=== PATIENT | male | born 1985 | race Caucasian/White ===

== ENCOUNTER 2022-03-06 09:25 | Outpatient (CLI) | payer OTHER, SELFPAY ==
[2022-03-06 19:22] LABS: Alanine Aminotransferase 38 U/L (6-50); Albumin Level 4.9 g/dL (3.5-5.1); Alkaline Phosphatase 72 U/L (38-126); Anion Gap 13 mmol/L (8-16); Aspartate Amino Transferase 29 U/L (17-59); Bilirubin,Total 0.9 mg/dL (0.2-1.3); Blood Urea Nitrogen 15 mg/dL (9-20); Calcium 9.2 mg/dL (8.4-10.2); Carbon Dioxide 26 mmol/L (22-30); Chloride 101 mmol/L (98-107); Cholesterol 192 mg/dL (0-200); Estimated Glomerular Filt Rate > 60; Glucose 94 mg/dL (65-110); HDL Direct 42 mg/dL; Potassium 4.6 mmol/L (3.4-5.0); Sodium 140 mmol/L (137-145); Triglycerides 277 mg/dL (<150)
[2022-03-06 19:33] LABS: LDL Cholesterol Direct 44 mg/dL
[2022-03-06 19:37] LABS: Vitamin D 25 Hydroxy 30.9 ng/mL
[2022-03-06 20:02] LABS: Basophils Absolute Auto 0.1 K/mm3 (0.0-0.1); Basophils Percent Auto 0.9 % (0.2-1.2); Eosinophils Absolute Auto 0.2 K/mm3 (0-0.3); Eosinophils Percent Auto 3.3 % (0-4.4); Hematocrit 46.2 % (42.0-52.0); Hemoglobin 15.3 g/dL (14.0-18.0); Immature Granulocyte Absolute 0.02 K/mm3 (0.00-0.031); Immature Granulocyte Percent A 0.3 % (0-0.5); Lymphocytes Absolute Auto 1.56 K/mm3 (0.9-3.2); Lymphocytes Percent Auto 22.2 % (18.3-44.2); Mean Corpuscular HGB Conc 33.1 g/dl (32-36); Mean Corpuscular Volume 93.5 fl (80-100); Mean Platelet Volume 9.7 fl (7.4-10.4); Monocytes Absolute Auto 0.4 K/mm3 (0.1-0.6); Neutrophils Absolute Auto 4.7 K/mm3 (1.3-6.7); Neutrophils Percent Auto 67.3 % (45.5-73.1); Platelet Count Result 266 k/mm3 (150-375); Red Blood Count 4.94 M/mm3 (4.6-6.20); Red Cell Distribution Width 12.1 % (11.5-14.5)
== END 2022-03-06 09:26 | disposition home or self-care (01) ==
LOC: ANHGOSHLAB 09:30
PROVIDERS: PCP Family Medicine; Visit Provider Family Medicine
DX: F41.8 Other specified anxiety disorders (principal); R03.0 Elevated blood-pressure reading, without diagnosis of hypertension; Z13.220 Encounter for screening for lipoid disorders; E55.9 Vitamin D deficiency, unspecified
CPT/HCPCS: 36415; 80053; 80061; 82306; 84443; 85025

== ENCOUNTER 2022-04-26 08:31 | Outpatient (CLI) | payer OTHER, SELFPAY ==
--- NOTE | 2022-05-08 14:33 | WPDHOMESLEEP ---
Sleep Study - Home Unattended Date of Study: 04/26/22 Ordering Provider: Kavon Laguna MD Interpreting Provider: Barby Hawley, DO Home Sleep Study Type: Apnea Link Air Height: 1.78 m Weight: 81.647 kg Body Mass Index: 25.8 Neck Circumference (inches): 14.25 [place]: 10 Reason for Sleep Study Daytime hypersomnia, morning headaches Sleep History The patient is a 37-year-old male with anxiety and depression that had a sleep study ordered by his primary care for evaluation of sleep apnea. 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 He frequently awakens from sleep short of breath. He occasionally awakens at night with heartburn, belching or cough. He frequently snores loud enough that others complain. He frequently wakes up gasping for air throughout the night. He frequently has breathing problems at night observed by himself or others. He denies sweating excessively at night. He frequently falls asleep during the day but never falls asleep while driving. he rarely experiences loss of muscle tone when extremely emotional. He frequently has trouble at school or work due to sleepiness. He occasionally feels unable to move when waking up or falling asleep. He frequently experiences vivid dreamlike scenes upon awakening or falling asleep. He denies feeling afraid of going to sleep. He occasionally has nightmares and frequently remembers his dreams. He frequently has thoughts racing through his mind. He occasionally feels sad or depressed. He frequently has anxiety. He frequently has muscular tension. He frequently notices parts of his body jerk. He frequently kicks during the night. He frequently has crawling and aching feelings in his legs and frequently has leg pain during the night. He frequently grinds his teeth during sleep and constantly awakens with morning jaw pain. He is frequently bothered by pain during the day but rarely awakened by pain during the night. He frequently wakes up feeling stiff in the morning. He frequently wakes up with sore or achy muscles. He frequently wakes up with pain in the neck, spine or other joints. He goes to bed at 10:00 p.m. on weekdays and at midnight on the weekends. It takes him at least 1 hour to fall asleep. He currently lives with his . He does not consume any caffeinated beverages within 2 hours of bedtime. He does not engage in physical exercise before bedtime. He will read before falling asleep. He denies watching television before falling asleep. He will take naps in the afternoon or the evening but they are not refreshing. He drinks 3-6 caffeinated beverages per day. He denies tobacco, alcohol and recreational drug use. [facility] Past Medical History Medical History Depression with anxiety Environmental allergies Surgical History Surgical History No pertinent past surgical history Family History Family History Father Hypertension Grandparent Family history of lung cancer Social History Social History Smoking status: Former smoker Second hand tobacco smoke exposure: No Smoking end date: 03/23/21 Alcohol intake: never Substance use: never Substance use type: does not use Lack of Transportation: No Lack of Food: Never True Current Housing: I Have Housing Concerned About Future Housing: No Difficulty Paying Gas/Electric Bills: No Difficulty Paying for Meds: No Currently Unemployed: No Education: High School Diploma/GED Difficulty w/ Childcare or Family Care: No Gender identity (if verbalized by the patient): Male Medications Home Medications Medication Instructions Recorded Confirmed Type fluoxetine 40 mg capsule 40 mg PO DAILY #90 caps 03/06/22 03/06/22 Rx Sleep Procedure T
[2022-05-08 14:40] VITALS: BMI 25.8
== END 2022-04-27 13:33 | disposition home or self-care (01) ==
PROVIDERS: PCP Family Medicine; Visit Provider Family Medicine
DX: G47.10 Hypersomnia, unspecified (principal); G47.33 Obstructive sleep apnea (adult) (pediatric)
CPT/HCPCS: 95806

== ENCOUNTER 2022-09-15 10:29 | Outpatient (CLI) | payer OTHER, SELFPAY ==
[2022-09-15 19:17] LABS: Alanine Aminotransferase 32 U/L (6-50); Albumin Level 4.7 g/dL (3.5-5.1); Alkaline Phosphatase 62 U/L (38-126); Anion Gap 5 mmol/L (8-16); Aspartate Amino Transferase 28 U/L (17-59); Bilirubin,Total 0.9 mg/dL (0.2-1.3); Blood Urea Nitrogen 16 mg/dL (9-20); Calcium 8.9 mg/dL (8.4-10.2); Carbon Dioxide 33 mmol/L (22-30); Chloride 101 mmol/L (98-107); Estimated Glomerular Filt Rate > 60; Glucose 89 mg/dL (65-110); Potassium 4.8 mmol/L (3.4-5.0); Sodium 139 mmol/L (137-145)
[2022-09-15 19:25] LABS: Free T4 Free Thyroxine 0.91 ng/mL (0.78-2.19); Vitamin D 25 Hydroxy 35.6 ng/mL
[2022-09-15 19:43] LABS: Cortisol Random 4.83 ug/dL
[2022-09-15 20:19] LABS: Folic Acid 9.8 ng/mL (2.76->20)
[2022-09-20 13:59] LABS: Thyrotropin Receptor Antibody <1.00 IU/L (<=2.00)
[2022-09-21 11:25] LABS: Adrenocorticotropic Hormone 13 pg/mL (6-50)
[2022-09-21 12:21] LABS: Thyroid Peroxidase Antibodies <1 IU/mL (<9)
[2022-09-22 04:52] LABS: Prolactin 3.5 ng/mL (***)
[2022-09-22 13:01] LABS: Thyroid Stimulating Immunoglob <89 % baseline (<140)
[2022-09-28 19:12] LABS: DHEA-Sulfate 328 mcg/dL (106-464)
== END 2022-09-15 10:30 | disposition home or self-care (01) ==
LOC: ANHGOSHLAB 10:31
PROVIDERS: PCP Family Medicine; Visit Provider Internal Medicine
DX: R53.82 Chronic fatigue, unspecified (principal)
CPT/HCPCS: 36415; 80053; 82024; 82306; 82533; 82607; 82627; 82746; 83519; 84146; 84439; 84443; 84445; 86376

== ENCOUNTER 2022-10-20 08:09 | Outpatient (CLI) | payer OTHER, SELFPAY ==
[2022-10-20 10:11] LABS: Cortisol Baseline 8.06 ug/dL
== END 2022-10-20 08:10 | disposition home or self-care (01) ==
PROVIDERS: PCP Family Medicine; Visit Provider Internal Medicine
DX: R53.82 Chronic fatigue, unspecified (principal)
CPT/HCPCS: 36415; 82533; 96372; J0834

== ENCOUNTER 2023-03-12 09:20 | Outpatient (CLI) | payer OTHER, SELFPAY ==
[2023-03-12 19:20] LABS: Alanine Aminotransferase 32 U/L (6-50); Alkaline Phosphatase 64 U/L (38-126); Anion Gap 12 mmol/L (8-16); Aspartate Amino Transferase 33 U/L (17-59); Bilirubin,Total 2.2 mg/dL (0.2-1.3); Blood Urea Nitrogen 13 mg/dL (9-20); Calcium 9.7 mg/dL (8.4-10.2); Carbon Dioxide 29 mmol/L (22-30); Chloride 99 mmol/L (98-107); Cholesterol 142 mg/dL (0-200); Estimated Glomerular Filt Rate > 60; Glucose 94 mg/dL (65-110); HDL Direct 52 mg/dL; Potassium 4.4 mmol/L (3.4-5.0); Sodium 140 mmol/L (137-145); Triglycerides 80 mg/dL (<150)
[2023-03-12 19:31] LABS: LDL Cholesterol Direct 52 mg/dL
[2023-03-12 20:37] LABS: Basophils Absolute Auto 0.1 K/mm3 (0.0-0.1); Basophils Percent Auto 1.1 % (0.2-1.2); Eosinophils Absolute Auto 0.2 K/mm3 (0-0.3); Eosinophils Percent Auto 3.2 % (0-4.4); Hemoglobin 15.4 g/dL (14.0-18.0); Immature Granulocyte Absolute 0.03 K/mm3 (0.00-0.031); Immature Granulocyte Percent A 0.5 % (0-0.5); Lymphocytes Absolute Auto 1.24 K/mm3 (0.9-3.2); Mean Corpuscular HGB Conc 33.5 g/dl (32-36); Mean Corpuscular Hemoglobin 32.1 pg (26-34); Mean Corpuscular Volume 95.8 fl (80-100); Mean Platelet Volume 10.1 fl (7.4-10.4); Monocytes Absolute Auto 0.4 K/mm3 (0.1-0.6); Monocytes Percent Auto 6.6 % (2.6-8.5); Neutrophils Absolute Auto 4.6 K/mm3 (1.3-6.7); Neutrophils Percent Auto 69.6 % (45.5-73.1); Platelet Count Result 302 k/mm3 (150-375); Red Cell Distribution Width 11.9 % (11.5-14.5); White Blood Count 6.5 K/mm3 (4.5-10.0)
[2023-03-12 22:23] LABS: Vitamin D 25 Hydroxy 44.6 ng/mL
[2023-03-17 09:32] LABS: Testosterone Free 88.6 pg/mL (35.0-155.0); Testosterone Total 666 ng/dL (250-1100)
== END 2023-03-12 09:21 | disposition home or self-care (01) ==
PROVIDERS: PCP Family Medicine; Visit Provider Family Medicine
DX: Z00.00 Encounter for general adult medical examination without abnormal findings (principal); G47.33 Obstructive sleep apnea (adult) (pediatric); R53.82 Chronic fatigue, unspecified; E78.5 Hyperlipidemia, unspecified; E04.1 Nontoxic single thyroid nodule; G25.81 Restless legs syndrome; F41.8 Other specified anxiety disorders; E53.8 Deficiency of other specified B group vitamins; E55.9 Vitamin D deficiency, unspecified
CPT/HCPCS: 36415; 80053; 80061; 82306; 82607; 82728; 84402; 84403; 84443; 85025

== ENCOUNTER 2024-05-29 07:57 | Outpatient (CLI) | payer OTHER, SELFPAY ==
--- NOTE | ~2024-05-29 | MR_ITS ---
EXAMINATION: MR brain/brain stem wo con DATE: 05/29/2024 08:29 INDICATION: Other hypersomnia. Headache. TECHNIQUE: Magnetic resonance imaging (MRI) of the brain and brainstem was performed without intraven ous contrast. COMPARISON: None. 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 There is no acute ischemic infarct or intracranial hemorr catrachita. The ventricles are normal in size. The orbits are normal. There is mild mucosal thickening in t he paranasal sinuses. The mastoid air cells are normal. IMPRESSION: 1. 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 Reviewed, dictated and finalized at location A. RNMENT MINISTER IMPRESSION: 1. 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
== END 2024-05-29 07:58 | disposition home or self-care (01) ==
PROVIDERS: PCP Family Medicine; Visit Provider Family Medicine
DX: G47.19 Other hypersomnia (principal); E34.8 Other specified endocrine disorders
CPT/HCPCS: 70551

== ENCOUNTER 2024-06-26 21:01 | Emergency (ER) | payer OTHER, SELFPAY ==
--- OUTSIDE RECORDS SUMMARY | 2024-06-26 21:04 | XMS_ITS | Patient Health Summary ---
Author Organization [facility] Address [address] [place] [address] Care Team Providers Care Fire Manager Name Role Phone Unavailable Primary Care Provider Unavailabl e Note from [facility],non-owned Affiliates and Associated Physician Practices is amultiple site organization consisting of ambulatory clinics and hospital sitesin [place], [place], [place] and [place]. This disclosure is being madepursuant to the Care Everywhere program and may not contain all information available regarding this patient. Last updated 18.[facility] Allergies No known active allergies Medications * Be aware that medications may not be up to date on this document. Alwaysverify current medications with the patient. * HYDROcodone-acetaminophen (Binger) 5-325 MG tablet(Started 05/06/2024) Take 1 (one) tablet by mouth every 6 hours as needed for Pain * ondansetron, disintegrating, (Zofran ODT) 4 MG tablet(Started 05/06/2024) Take 1 (one) tablet by mouth every 6 hours as needed for Nausea/Vomiting Allow tablet to dissolve on the tongue Social History Tobacco Use Types Packs/Day Years Used Date Smoking Tobacco: Never Assessed Sex and Gender Information Value Date Recorded Sex Assigned at Not on file Gender Identity Not on file Sexual Orientation Not on file Last Filed Vital Signs Vital Sign Reading Time Taken Comments Blood Pressure 111/73 05/06/2024 10:22 PM STOCK MOVER Pulse 92 05/06/2024 8:01 PM STOCK MOVER Temperature 36.8 C (98.2 F) 05/06/2024 8:01 PM STOCK MOVER Respiratory Rate 22 05/06/2024 8:01 PM STOCK MOVER Oxygen Saturation 97% 05/06/2024 8:01 PM STOCK MOVER Inhaled Oxygen Concentration - - Weight - - Height - - Body Mass Index - - Procedures * CT ABDOMEN PELVIS W CONTRAST(Performed 05/06/2024) Performed for Abdominal pain, right lower quadrant * URINALYSIS REFLEX MICROSCOPIC REFLEX CULTURE(Performed 05/06/2024) * LIPASE BLOOD(Performed 05/06/2024) * COMPREHENSIVE METABOLIC PANEL(Performed 05/06/2024) * CBC W AUTO DIFFERENTIAL(Performed 05/06/2024) Results * CT ABDOMEN PELVIS W CONTRAST (05/06/2024 7:36 PM STOCK MOVER) Anatomical Region Laterality Modality Abdomen, Pelvis Computed Tomogra phy 05/06/2024 7:43 PM STOCK MOVER Impressions 05/06/2024 7:50 PM STOCK MOVER IMPRESSION: 1. Right obstructive uropathy due to a 5 mm calculus in the distal ampullary portion of the ureter. 2. Multiple additional nonobstructing right intrarenal stones > Interpreting Provider: Robert Gandhi MD on 05/06/2024 7:50 PM Narrative 05/06/2024 7:50 PM ST[facility] MOVER PROCEDURE: CT ABDOMEN PELVIS W CONTRAST DATE/TIME OF EXAM: 05/06/2024 7:37 PM CLINICAL INFORMATION: None relevant/not provided if blank. Indication: R10.31: Right lower quadrant pain Additional History: COMPARISON: None. TECHNIQUE: CT of the abdomen and pelvis was performed following intravenous contrast utilizing standard protocol. CT dose reduction technique was used, including Automated Exposure Control. CONTRAST: IOPAMIDOL 76 % IV SOLN:100 mL FINDINGS: The lung bases are clear and free of effusion. The heart size is normal. Overall liver size is normal. In hepatic segment 3 there is a 0.9 cm hypervascular nodule. At the patient's age as is most likely incidental such as flash filling of a hemangioma. No follow-up is recommended. The portal and hepatic veins are patent. The gallbladder is unremarkable and there is no dilatation of the biliary tree or common duct. The pancreas and pancreatic duct are normal. The spleen is normal. Adrenal glands are normal. Mild right hydronephrosis and hydroureter is due to a 5 x 4 mm calculus in the very distal ampullary portion of the ureter. There are multiple additional nonobstructing right intrarenal stones including a 9 x 7 mm calculus free within the renal pelvis. At least 5 additional stones within the calyces. The left kidney is unremarkable and free of stones. The abdominal aorta and IVC are unremarkable. There is no retroperitoneal or iliac chain adenopathy. The distal esophagus is decompressed. The stomach and duodenum are normal. Small bowel is normal. The terminal ileum is normal. There is a possible atrophic appendix without any inflammation. Scattered stool in the colon without obstructive or inflammatory changes. No free fluid, free air or abscess. The urinary bladder is completely empty. No significant bony findings. Incidental 1.5 cm noninflamed fatty umbilical hernia. Procedure Note Robert Gandhi MD - 05/06/2024 PROCEDURE: CT ABDOMEN PELVIS W CONTRAST DATE/TIME OF EXAM: 05/06/2024 7:37 PM CLINICAL INFORMATION: None relevant/not provided if blank. Indication: R10.31: Right lower quadrant pain Additional History: COMPARISON: None. TECHNIQUE: CT of the abdomen and pelvis was performed following intravenouscontrast utilizing standard protocol. CT dose reduction technique was used, including Automated ExposureControl. CONTRAST: IOPAMIDOL 76 % IV SOLN:100 mL FINDINGS: The lung bases are clear and free of effusion. The heart size isnormal. Overall liver size is normal. In hepatic segment 3 there is a 0.9 cm hypervascular nodule. At the patient's age as is most likely incidental such as flash filling of a hemangioma. No follow-up is recommended.The portal and hepatic veins are patent. The gallbladder is unremarkableand there is no dilatation of the biliary tree or common duct. The pancreas and pancreatic duct are normal. The spleen is normal. Adrenal glandsare normal. Mild right hydronephrosis and hydroureter is due to a 5 x 4 mm calculusin the very distal ampullary portion of the ureter. There are multiple additional nonobstructing right intrarenal stones including a 9 x 7 mm calculus free within the renal pelvis. At least 5 additional stoneswithin the calyces. The left kidney is unremarkable and free of stones. The abdominal aorta and IVC are unremarkable. There is noretroperitoneal or iliac chain adenopathy. The distal esophagus is decompressed. The stomach and duodenum arenormal. Small bowel is normal. The terminal ileum is normal. There is apossible atrophic appendix without any inflammation. Scattered stool in thecolon without obstructive or inflammatory changes. No free fluid, free air or abscess. The urinary bladder is completely empty. No significant bony findings. Incidental 1.5 cm noninflamed fatty umbilical hernia. IMPRESSION: 1. Right obstructive uropathy due to a 5 mm calculus in the distal ampullary portion of the ureter. 2. Multiple additional nonobstructing right intrarenal stones > Interpreting Provider: Robert Gandhi MD on 05/06/2024 7:[address] ORDERABLES * (ABNORMAL) URINALYSIS REFLEX MICROSCOPIC REFLEX CULTURE (05/06/2024 6:31 PM STOCK MOVER) Color UA Yellow Yellow, Straw 05/06/2024 6:42 PM STOCK M[facility] Clarity UA Clear Clear 05/06/2024 6:42 PM STOCK M[facility] Glucose UA Normal Normal 05/06/2024 6:42 PM STOCK M[facility] Bilirubin UA Negative Negative 05/06/2024 6:42 PM STOCK MOVER [facility] Ketone UA Trace(A) Negative 05/06/2024 6:42 PM STOCK MOVER [facility] Specific [place] UA 1.028 1.005 - 1.030 05/06/2024 6:42 PM STOCK MOVER [facility] Blood UA Negative Negative 05/06/2024 6:[address] [facility] pH UA 5.0 5.0 - 9.0 pH 05/06/2024 6:42 PM STOCK MOVER [facility] Protein UA Trace(A) Negative 05/06/2024 6:42 PM ST[facility] M[facility] Urobilinogen UA Normal Normal mg/dL 025 6:[address] [facility] Nitrite UA Negative Negative 05/06/2024 6:42 PM ST[facility] M[facility] Leukocyte UA Negative Negative 05/06/2024 6:[address] [facility] Urine URINE SPECIMEN OBTAINED BY CLEAN CATCH PROCEDURE / Unknown Collection / Unknown 05/06/2024 6:31 PM STOCK MOVER 05/06/2024 6:36 PM ST[facility] MOVER Narrative [facility] - 05/06/2024 6:42 PM ST[facility] - URINALYSIS ORD ERABLES [facility] [address] [place] [address] * (ABNORMAL) CBC W AUTO DIFFERENTIAL (05/06/2024 6:31 PM [facility]) [facility] WBC 13.2(H) 4.0 - 10.7 x10E9/L 05/06/2024 6:[address] [facility] RBC Count 4.64 4.30 - 5.80 x10E12/L 05/06/2024 6:[address] [facility] Hemoglobin 14.5 13.3 - 17.5 g/dL 05/06/2024 6:[address] [facility] Hematocrit 42.6 38.7 - 51.1 % 05/06/2024 6:[address] [facility] MCV 91.8 80.0 - 98.0 fL 05/06/2024 6:[address] [facility] MCH 31.3 26.7 - 33.6 pg 05/06/2024 6:[address] [facility] MCHC 34.0 31.7 - 36.3 g/dL 05/06/2024 6:[address] [facility] RDW-CV 11.9 11.3 - 14.8 % 05/06/2024 6:[address] [facility] Platelet Count 263 150 - 420 x10E9/L 05/06/2024 6:[address] [facility] MPV 9.0 7.8 - 11.4 fL 05/06/2024 6:[address] [facility] Neutrophil % 75.0(H) 41.0 - 74.0 % 05/06/2024 6:[address] [facility] Lymphocyte % 17.5 17.0 - 47.0 % 05/06/2024 6:[address] [facility] Monocyte % 4.9 3.0 - 11.0 % 05/06/2024 6:[address] [facility] Eosinophil % 1.5 0.0 - 7.0 % 05/06/2024 6:[address] [facility] Basophil % 0.6 0.0 - 1.6 % 05/06/2024 6:[address] [facility] Immature Granulocytes % 0.5 0.0 - 1.0 % 05/06/2024 6:[address] [facility] Neutrophil Absolute 9.89(H) 1.60 - 7.50 x10E9/L 05/06/2024 6:[address] [facility] Lymphocyte Absolute 2.30 1.00 - 4.40 x10E9/L 05/06/2024 6:[address] [facility] Monocyte Absolute 0.65 0.15 - 1.00 x10E9/L 05/06/2024 6:[address] [facility] Eosinophil Absolute 0.20 0.00 - 0.60 x10E9/L 05/06/2024 6:[address] [facility] Basophil Absolute 0.08 0.00 - 0.13 x10E9/L 05/06/2024 6:[address] [facility] Blood BLOOD SPECIMEN / Unknown Venipuncture / Unknown 05/06/2024 6:31 PM STOCK [facility]OVER 05/06/2024 6:36 PM ST[facility] - HEMATOLOGY ORD ERABLES Performing Organization Address City/State/[facility] Co de Phone Number [facility] [address] [place] [address] * (ABNORMAL) COMPREHENSIVE METABOLIC PANEL (05/06/2024 6:31 PM STOCK MOVER) Glucose 113(H) 70 - 99 mg/dL 05/06/2024 6:[address] [facility] Sodium 137 136 - 145 mmol/L 05/06/2024 6:[address] [facility] Potassium 3.7 3.5 - 5.1 mmol/L 05/06/2024 6:[address] [facility] Chloride 103 98 - 107 mmol/L 05/06/2024 6:[address] [facility] CO2 26 22 - 29 mmol/L 05/06/2024 6:[address] [facility] Calcium 9.0 8.4 - 10.4 mg/dL 05/06/2024 6:[address] [facility] Anion Gap 8 6 - 16 mmol/L 05/06/2024 6:[address] [facility] BUN 15 5.3 - 18.7 mg/dL 05/06/2024 6:[address] [facility] Creatinine 1.01 0.72 - 1.25 mg/dL 05/06/2024 6:52 PM ST[facility] Alkaline Phosphatase 75 40 - 150 U/L 05/06/2024 6:52 PM ST[facility] M[facility] ALT 31 0 - 55 U/L 05/06/2024 6:52 PM ST[facility] AST 23 5 - 34 U/L 05/06/2024 6:[address] [facility] Protein Total 7.9 6.4 - 8.3 gm/dL 05/06/2024 6:52 PM ST[facility] Albumin 4.6 3.4 - 5.0 gm/dL 05/06/2024 6:52 PM ST[facility] Bilirubin Total 1.1 0.2 - 1.2 mg/dL 05/06/2024 6:[address] [facility] eGFR by CKD-EPI >90 >=90 mL/min/1.7 3 m2 05/06/2024 6:52 PM ST[facility] Blood BLOOD SPECIMEN / Unknown Venipuncture / Unknown 05/06/2024 6:31 PM STOCK MOVER 05/06/2024 6:36 PM ST[facility] - CHEMISTRY VALERIE SANCHEZ [facility] [address] [place] [address] * LIPASE BLOOD (05/06/2024 6:31 PM STOCK MOVER) Lipase 18 <60 U/L 05/06/2024 6:52 PM STOCK MOVER [facility] Blood BLOOD SPECIMEN / Unknown Venipuncture / Unknown 05/06/2024 6:31 PM STOCK MOVER 05/06/2024 6:36 PM STOCK MOVER [facility] - CHEMISTRY VALERIE SANCHEZ [facility] [address] [place] [address]
--- OUTSIDE RECORDS SUMMARY | 2024-06-26 21:04 | XMS_ITS | Referral Summary ---
Author Organization [facility] Address [address] [place] [address] Care Team Providers Care Case Picker Name Role Phone Unavailable Primary Care Provider Unavailabl e Source Comments [facility],non-owned Affiliates and Associated Physician Practices is amultiple site organization consisting of ambulatory clinics and hospital sitesin [place], [place], [place] and [place]. This disclosure is being madepursuant to the Care Everywhere program and may not contain all information available regarding this patient. Last updated 18.[facility] Encounters Date Type Department Care Team Description 05/06/2024 Travel 05/06/2024 6:23 PM [employer] CONSULTING ARCHITECT - 05/06/2024 10:25 PM [employer]D CONSULTING ARCHITECT Emergency ER at [address] [address] Kidney stone (Primary Dx); Abdominal pain, right lower quadrant Discharge Disposition: Home or Self Care from Last 3 Months Allergies No known active allergies Medications * Be aware that medications may not be up to date on this document. Alwaysverify current medications with the patient. Medication Sig Dispensed Refills Start Date End Date Status HYDROcodone-acetamin ophen ([place]) 5-325 MG tabletIndications:Ki dney stone Take 1 (one) tablet by mouth every 6 hours as needed for Pain 12 tablet 05/06/2024 Active ondansetron, disintegrating, (Zofran ODT) 4 MG tablet Take 1 (one) tablet by mouth every 6 hours as needed for Nausea/Vomiting Allow tablet to dissolve on the tongue 20 tablet 05/06/2024 Active Social History Tobacco Use Types Packs/Day Years Used Date Smoking Tobacco: Never Assessed Sex and Gender Information Value Date Recorded Sex Assigned at Not on file Gender Identity Not on file Sexual Orientation Not on file Last Filed Vital Signs Vital Sign Reading Time Taken Comments Blood Pressure 111/73 05/06/2024 10:22 PM [employer] CONSULTING ARCHITECT Pulse 92 05/06/2024 8:01 PM [employer]OUD CONSULTING ARCHITECT Temperature 36.8 C (98.2 F) 05/06/2024 8:01 PM [employer]OUD CONSULTING ARCHITECT Respiratory Rate 22 05/06/2024 8:01 PM [employer]D CONSULTING ARCHITECT Oxygen Saturation 97% 05/06/2024 8:01 PM [employer]D CONSULTING ARCHITECT Inhaled Oxygen Concentration - - Weight - - Height - - Body Mass Index - - Plan of Treatment Not on file Procedures Procedure Name Priority Date/Time Associated Diagnosis Comments CT ABDOMEN PELVIS W CONTRAST STAT 05/06/2024 7:36 PM [employer]OUD CONSULTING ARCHITECT Abdominal pain, right lower quadrant URINALYSIS REFLEX MICROSCOPIC REFLEX CULTURE STAT 05/06/2024 6:31 PM [employer]D CONSULTING ARCHITECT LIPASE BLOOD STAT 05/06/2024 6:31 PM [employer]OUD CONSULTING ARCHITECT COMPREHENSIVE METABOLIC PANEL STAT 05/06/2024 6:31 PM [employer]OUD CONSULTING ARCHITECT CBC W AUTO DIFFERENTIAL STAT 05/06/2024 6:31 PM [employer]OUD CONSULTING ARCHITECT from Last 3 Months Results * CT ABDOMEN PELVIS W CONTRAST (05/06/2024 7:36 PM [employer] CLOUD CONSULTING ARCHITECT) Anatomical Region Laterality Modality Abdomen, Pelvis Computed Tomogra phy 05/06/2024 7:43 PM [employer]OUD CONSULTING ARCHITECT Impressions 05/06/2024 7:50 PM [employer] CLOUD CONSULTING ARCHITECT IMPRESSION: 1. Right obstructive uropathy due to a 5 mm calculus in the distal ampullary portion of the ureter. 2. Multiple additional nonobstructing right intrarenal stones > Interpreting Provider: Robert Gandhi MD on 05/06/2024 7:50 PM Narrative 05/06/2024 7:50 PM [employer] CONSULTING ARCHITECT PROCEDURE: CT ABDOMEN PELVIS W CONTRAST DATE/TIME [...] REFLEX MICROSCOPIC REFLEX CULTURE (05/06/2024 6:31 PM [employer]OUD CONSULTING ARCHITECT) Color UA Yellow Yellow, Straw 05/06/2024 6:42 PM [employer]ST[employer] CLOUD CONSULTING ARCHITECT [facility] Clarity UA Clear Clear 05/06/2024 6:42 PM [employer]ST[employer] CLOUD CONSULTING ARCHITECT [facility] Glucose UA Normal Normal 05/06/2024 6:42 PM [employer] CLOUD CONSULTING ARCHITECT [facility] Bilirubin UA Negative Negative 05/06/2024 6:42 PM [employer] CLOUD CONSULTING ARCHITECT [facility] Ketone UA Trace(A) Negative 05/06/2024 6:42 PM [employer] CLOUD CONSULTING ARCHITECT [facility] Specific [place] UA 1.028 1.005 - 1.030 05/06/2024 6:42 PM [employer] CLOUD CONSULTING ARCHITECT [facility] Blood UA Negative Negative 05/06/2024 6:42 PM [employer] CLOUD CONSULTING ARCHITECT [facility] pH UA 5.0 5.0 - 9.0 pH 05/06/2024 6:42 PM [employer] CLOUD CONSULTING ARCHITECT [facility] Protein UA Trace(A) Negative 05/06/2024 6:42 PM [facility] Urobilinogen UA Normal Normal mg/dL 025 6:42 PM [facility] Nitrite UA Negative Negative 05/06/2024 6:42 PM [facility] Leukocyte UA Negative Negative 05/06/2024 6:42 PM [facility] Urine URINE SPECIMEN OBTAINED BY CLEAN CATCH PROCEDURE / Unknown Collection / Unknown 05/06/2024 6:31 PM [employer] CLOUD CONSULTING ARCHITECT 05/06/2024 6:36 PM [employer]ST[employer] CLOUD CONSULTING ARCHITECT [facility] - 05/06/2024 6:42 PM [employer]ST[employer] CLOUD CONSULTING ARCHITECT [facility] - URINALYSIS ORD ERABLES [facility] [address] [place], [place] [id number] * (ABNORMAL) CBC W AUTO DIFFERENTIAL (05/06/2024 6:31 PM [employer] CLOUD CONSULTING ARCHITECT) WBC 13.2(H) 4.0 - 10.7 x10E9/L 05/06/2024 6:41 PM [facility] RBC Count 4.64 4.30 - 5.80 x10E12/L 05/06/2024 6:41 PM [facility] Hemoglobin 14.5 13.3 - 17.5 g/dL 05/06/2024 6:41 PM [facility] Hematocrit 42.6 38.7 - 51.1 % 05/06/2024 6:41 PM [facility] MCV 91.8 80.0 - 98.0 fL 05/06/2024 6:41 PM [facility] MCH 31.3 26.7 - 33.6 pg 05/06/2024 6:41 PM [facility] MCHC 34.0 31.7 - 36.3 g/dL 05/06/2024 6:41 PM [facility] RDW-CV 11.9 11.3 - 14.8 % 05/06/2024 6:41 PM [facility] Platelet Count 263 150 - 420 x10E9/L 05/06/2024 6:41 PM [facility] MPV 9.0 7.8 - 11.4 fL 05/06/2024 6:41 PM [facility] Neutrophil % 75.0(H) 41.0 - 74.0 % 05/06/2024 6:41 PM [facility] Lymphocyte % 17.5 17.0 - 47.0 % 05/06/2024 6:41 PM [facility] Monocyte % 4.9 3.0 - 11.0 % 05/06/2024 6:41 PM [facility] Eosinophil % 1.5 0.0 - 7.0 % 05/06/2024 6:41 PM [facility] Basophil % 0.6 0.0 - 1.6 % 05/06/2024 6:41 PM [facility] Immature Granulocytes % 0.5 0.0 - 1.0 % 05/06/2024 6:41 PM [facility] Neutrophil Absolute 9.89(H) 1.60 - 7.50 x10E9/L 05/06/2024 6:41 PM [facility] Lymphocyte Absolute 2.30 1.00 - 4.40 x10E9/L 05/06/2024 6:41 PM [facility] Monocyte Absolute 0.65 0.15 - 1.00 x10E9/L 05/06/2024 6:41 PM [facility] Eosinophil Absolute 0.20 0.00 - 0.60 x10E9/L 05/06/2024 6:41 PM [facility] Basophil Absolute 0.08 0.00 - 0.13 x10E9/L 05/06/2024 6:41 PM [facility] Blood BLOOD SPECIMEN / Unknown Venipuncture / Unknown 05/06/2024 6:31 PM [employer]OUD CONSULTING ARCHITECT 05/06/2024 6:36 PM [facility] - HEMATOLOGY ORD ERABLES [facility] [address] [place] [address] * (ABNORMAL) COMPREHENSIVE METABOLIC PANEL (05/06/2024 6:31 PM [employer]STACK CLOUD CONSULTING ARCHITECT) [facility] Glucose 113(H) 70 - 99 mg/dL 05/06/2024 6:52 PM [facility] Sodium 137 136 - 145 mmol/L 05/06/2024 6:52 PM [facility] Potassium 3.7 3.5 - 5.1 mmol/L 05/06/2024 6:52 PM [facility] Chloride 103 98 - 107 mmol/L 05/06/2024 6:52 PM [facility] CO2 26 22 - 29 mmol/L 05/06/2024 6:52 PM [facility] Calcium 9.0 8.4 - 10.4 mg/dL 05/06/2024 6:52 PM [facility] Anion Gap 8 6 - 16 mmol/L 05/06/2024 6:52 PM [facility] BUN 15 5.3 - 18.7 mg/dL 05/06/2024 6:52 PM [facility] Creatinine 1.01 0.72 - 1.25 mg/dL 05/06/2024 6:52 PM [facility] Alkaline Phosphatase 75 40 - 150 U/L 05/06/2024 6:52 PM [facility] ALT 31 0 - 55 U/L 05/06/2024 6:52 PM [facility] AST 23 5 - 34 U/L 05/06/2024 6:52 PM [facility] Protein Total 7.9 6.4 - 8.3 gm/dL 05/06/2024 6:52 PM [facility] Albumin 4.6 3.4 - 5.0 gm/dL 05/06/2024 6:52 PM [facility] Bilirubin Total 1.1 0.2 - 1.2 mg/dL 05/06/2024 6:52 PM [facility] eGFR by CKD-EPI >90 >=90 mL/min/1.7 3 m2 05/06/2024 6:52 PM [facility] Blood BLOOD SPECIMEN / Unknown Venipuncture / Unknown 05/06/2024 6:31 PM [employer] CLOUD CONSULTING ARCHITECT 05/06/2024 6:36 PM [facility] - CHEMISTRY VALERIE Teran Organization Address City/State/ZIP Co de Phone Number [facility] [address] [place], [place] [id number] * LIPASE BLOOD (05/06/2024 6:31 PM [employer] CLOUD CONSULTING ARCHITECT) Lipase 18 <60 U/L 05/06/2024 6:52 PM [employer] CLOUD CONSULTING ARCHITECT [facility] Blood BLOOD SPECIMEN / Unknown Venipuncture / Unknown 05/06/2024 6:31 PM [employer]OUD CONSULTING ARCHITECT 05/06/2024 6:36 PM [employer]OUD CONSULTING ARCHITECT [facility] - CHEMISTRY VALERIE SANCHEZ Performing Organization Address City/State/[facility] Co de Phone Number [facility] [address] [place] [address] from Last 3 Months
--- OUTSIDE RECORDS SUMMARY | 2024-06-26 21:04 | XMS_ITS | Clinical Summary ---
Author Organization [facility] Address [address] [place] [address] Care Team Providers Care Policy Advisor Name Role Phone Unavailable Primary Care Provider Unavailabl e Source Comments [facility],non-owned Affiliates and Associated Physician Practices is amultiple site organization consisting of ambulatory clinics and hospital sitesin [place], [place], [place] and [place]. This disclosure is being madepursuant to the Care Everywhere program and may not contain all information available regarding this patient. Last updated 18.[facility] Allergies No known active allergies Medications * Be aware that medications may not be up to date on this document. Alwaysverify current medications with the patient. Medication Sig Dispensed Refills Start Date End Date Status HYDROcodone-acetamin ophen ([place]) 5-325 MG tabletIndications:Ki dney stone Take 1 (one) tablet by mouth every 6 hours as needed for Pain 12 tablet 05/06/2024 Active ondansetron, disintegrating, (Zofran ODT) 4 MG tablet Take 1 (one) tablet by mouth every 6 hours as needed for Nausea/Vomiting Allow tablet to dissolve on the tongue 20 tablet 05/06/2024 Active Encounters Date Type Department Care Team Description 05/06/2024 6:23 PM [employer] P[employer] SUPERVISOR - 05/06/2024 10:25 PM [employer] SUPERVISOR Emergency ER at [address] [address] Kidney stone (Primary Dx); Abdominal pain, right lower quadrant Discharge Disposition: Home or Self Care 05/06/2024 Travel from Last 3 Months Social History Tobacco Use Types Packs/Day Years Used Date Smoking Tobacco: Never Assessed Sex and Gender Information Value Date Recorded Sex Assigned at Not on file Gender Identity Not on file Sexual Orientation Not on file Last Filed Vital Signs Vital Sign Reading Time Taken Comments Blood Pressure 111/73 05/06/2024 10:22 PM [employer] SUPERVISOR Pulse 92 05/06/2024 8:01 PM [employer] SUPERVISOR Temperature 36.8 C (98.2 F) 05/06/2024 8:01 PM [employer] SUPERVISOR Respiratory Rate 22 05/06/2024 8:01 PM [employer] SUPERVISOR Oxygen Saturation 97% 05/06/2024 8:01 PM [employer] SUPERVISOR Inhaled Oxygen Concentration - - Weight - - Height - - Body Mass Index - - Plan of Treatment Health Maintenance Due Date Last Done Comments HIV SCREENING 2002 HEPATITIS C SCREENING 03/31/2005 DTAP/TDAP/TD VACCINES (1 - Tdap) 2006 HEPATITIS B VACCINE (1 of 3 - 19+ 3-dose series) 2006 COVID-19 VACCINE ( - 2023-2 5 season) 2023 INFLUENZA VACCINE (#1) 2023 DEPRESSION SCREENING 04/23/2024 ZOSTER VACCINE (1 of 2) 2037 HIB VACCINE Aged Out No longer eligi ble based on patient's age to complete this topic HPV VACCINE Aged Out No longer eligi ble based on patient's age to complete this topic MENINGOCOCCAL (Group B) VACCINE Aged Out No longer eligible based on patient's age to complete this topic MENINGOCOCCAL VACCINE Aged Out No emelina mora eligible based on patient's age to complete this topic PNEUMOCOCCAL VACCINE Aged Out No long er eligible based on patient's age to complete this topic Procedures Procedure Name Priority Date/Time Associated Diagnosis Comments CT ABDOMEN PELVIS W CONTRAST STAT 05/06/2024 7:36 PM [employer] SUPERVISOR Abdominal pain, right lower quadrant URINALYSIS REFLEX MICROSCOPIC REFLEX CULTURE STAT 05/06/2024 6:31 PM [employer] SUPERVISOR LIPASE BLOOD STAT 05/06/2024 6:31 PM [employer] SUPERVISOR COMPREHENSIVE METABOLIC PANEL STAT 05/06/2024 6:31 PM [employer] SUPERVISOR CBC W AUTO DIFFERENTIAL STAT 05/06/2024 6:31 PM [employer] P[employer] SUPERVISOR from Last 3 Months Results * CT ABDOMEN PELVIS W CONTRAST (05/06/2024 7:36 PM [employer] P[employer] SUPERVISOR) Anatomical Region Laterality Modality Abdomen, Pelvis Computed Tomogra phy 05/06/2024 7:43 PM [employer] SUPERVISOR Impressions 05/06/2024 7:50 PM [employer] SUPERVISOR IMPRESSION: 1. Right obstructive uropathy due to a 5 mm calculus in the distal ampullary portion of the ureter. 2. Multiple additional nonobstructing right intrarenal stones > Interpreting Provider: Robert Gandhi MD on 05/06/2024 7:50 PM Narrative 05/06/2024 7:50 PM [employer] SUPERVISOR PROCEDURE: CT ABDOMEN PELVIS W CONTRAST DATE/TIME [...] Gandhi MD on 05/06/2024 7:50 PM Elsi Rodrigo PA CT ORDERABLES * (ABNORMAL) URINALYSIS REFLEX MICROSCOPIC REFLEX CULTURE (05/06/2024 6:31 PM [employer] SUPERVISOR) Color UA Yellow Yellow, Straw 05/06/2024 6:42 PM [employer] PIPE SUPERVISOR [facility] Clarity UA Clear Clear 05/06/2024 6:42 PM [employer] SUPERVISOR [facility] Glucose UA Normal Normal 05/06/2024 6:42 PM [employer] SUPERVISOR [facility] Bilirubin UA Negative Negative 05/06/2024 6:42 PM [employer] SUPERVISOR [facility] Ketone UA Trace(A) Negative 05/06/2024 6:42 PM [employer] SUPERVISOR [facility] Specific [place] UA 1.028 1.005 - 1.030 05/06/2024 6:42 PM [employer] SUPERVISOR [facility] Blood UA Negative Negative 05/06/2024 6:42 PM [employer] SUPERVISOR [facility] pH UA 5.0 5.0 - 9.0 pH 05/06/2024 6:42 PM [employer] SUPERVISOR [facility] Protein UA Trace(A) Negative 05/06/2024 6:42 PM [employer] SUPERVISOR [facility] Urobilinogen UA Normal Normal mg/dL 025 6:42 PM [employer] SUPERVISOR [facility] Nitrite UA Negative Negative 05/06/2024 6:42 PM [employer] SUPERVISOR [facility] Leukocyte UA Negative Negative 05/06/2024 6:42 PM [facility] Urine URINE SPECIMEN OBTAINED BY CLEAN CATCH PROCEDURE / Unknown Collection / Unknown 05/06/2024 6:31 PM [employer] SUPERVISOR 05/06/2024 6:36 PM [employer] SUPERVISOR Narrative [facility] - 05/06/2024 6:42 PM [employer] SUPERVISOR [facility] - URINALYSIS ORD ERABLES [facility] [address] [place] [address] * (ABNORMAL) CBC W AUTO DIFFERENTIAL (05/06/2024 6:31 PM [employer] P[employer] SUPERVISOR) WBC 13.2(H) 4.0 - 10.7 x10E9/L 05/06/2024 6:41 PM [employer] SUPERVISOR [facility] RBC Count 4.64 4.30 - 5.80 x10E12/L 05/06/2024 6:41 PM [facility] Hemoglobin 14.5 13.3 - 17.5 g/dL 05/06/2024 6:41 PM [facility] Hematocrit 42.6 38.7 - 51.1 % 05/06/2024 6:41 PM [facility] MCV 91.8 80.0 - 98.0 fL 05/06/2024 6:41 PM [facility] MCH 31.3 26.7 - 33.6 pg 05/06/2024 6:41 PM [facility] MCHC 34.0 31.7 - 36.3 g/dL 05/06/2024 6:41 PM [facility] RDW-CV 11.9 11.3 - 14.8 % 05/06/2024 6:41 PM [facility] Platelet Count 263 150 - 420 x10E9/L 05/06/2024 6:41 PM [facility] MPV 9.0 7.8 - 11.4 fL 05/06/2024 6:41 PM [facility] Neutrophil % 75.0(H) 41.0 - 74.0 % 05/06/2024 6:41 PM [facility] Lymphocyte % 17.5 17.0 - 47.0 % 05/06/2024 6:41 PM [facility] Monocyte % 4.9 3.0 - 11.0 % 05/06/2024 6:41 PM [facility] Eosinophil % 1.5 0.0 - 7.0 % 05/06/2024 6:41 PM [facility] Basophil % 0.6 0.0 - 1.6 % 05/06/2024 6:41 PM [facility] Immature Granulocytes % 0.5 0.0 - 1.0 % 05/06/2024 6:41 PM [facility] Neutrophil Absolute 9.89(H) 1.60 - 7.50 x10E9/L 05/06/2024 6:41 PM [facility] Lymphocyte Absolute 2.30 1.00 - 4.40 x10E9/L 05/06/2024 6:41 PM [facility] Monocyte Absolute 0.65 0.15 - 1.00 x10E9/L 05/06/2024 6:41 PM [facility] Eosinophil Absolute 0.20 0.00 - 0.60 x10E9/L 05/06/2024 6:41 PM [facility] Basophil Absolute 0.08 0.00 - 0.13 x10E9/L 05/06/2024 6:41 PM [facility] Blood BLOOD SPECIMEN / Unknown Venipuncture / Unknown 05/06/2024 6:31 PM [employer] SUPERVISOR 05/06/2024 6:36 PM [facility] - HEMATOLOGY ORD ERABLES [facility] [address] [place] [address] * (ABNORMAL) COMPREHENSIVE METABOLIC PANEL (05/06/2024 6:31 PM [facility]) Glucose 113(H) 70 - 99 mg/dL 05/06/2024 6:52 PM [facility] Sodium 137 136 - 145 mmol/L 05/06/2024 6:52 PM [facility] Potassium 3.7 3.5 - 5.1 mmol/L 05/06/2024 6:52 PM [facility] Chloride 103 98 - 107 mmol/L 05/06/2024 6:52 PM [facility] CO2 26 22 - 29 mmol/L 05/06/2024 6:52 PM [facility] Calcium 9.0 8.4 - 10.4 mg/dL 05/06/2024 6:52 PM [facility] Anion Gap 8 6 - 16 mmol/L 05/06/2024 6:52 PM [facility] BUN 15 5.3 - 18.7 mg/dL 05/06/2024 6:52 PM [facility] Creatinine 1.01 0.72 - 1.25 mg/dL 05/06/2024 6:52 PM [facility] Alkaline Phosphatase 75 40 - 150 U/L 05/06/2024 6:52 PM [facility] ALT 31 0 - 55 U/L 05/06/2024 6:52 PM [facility] AST 23 5 - 34 U/L 05/06/2024 6:52 PM [facility] Protein Total 7.9 6.4 - 8.3 gm/dL 05/06/2024 6:52 PM [employer] SUPERVISOR [facility] Albumin 4.6 3.4 - 5.0 gm/dL 05/06/2024 6:52 PM [employer] SUPERVISOR [facility] Bilirubin Total 1.1 0.2 - 1.2 mg/dL 05/06/2024 6:52 PM [employer] SUPERVISOR [facility] eGFR by CKD-EPI >90 >=90 mL/min/1.7 3 m2 05/06/2024 6:52 PM [employer] SUPERVISOR [facility] Blood BLOOD SPECIMEN / Unknown Venipuncture / Unknown 05/06/2024 6:31 PM [employer] SUPERVISOR 05/06/2024 6:36 PM [employer] SUPERVIS[employer] [facility] - CHEMISTRY VALERIE SANCHEZ [facility] [address] [place] [address] * LIPASE BLOOD (05/06/2024 6:31 PM [employer] SUPERVISOR) Lipase 18 <60 U/L 05/06/2024 6:52 PM [employer] SUPERVISOR [facility] Blood BLOOD SPECIMEN / Unknown Venipuncture / Unknown 05/06/2024 6:31 PM [employer] P[employer] SUPERVISOR 05/06/2024 6:36 PM [employer] SUPERVISOR [facility] - CHEMISTRY VALERIE SANCHEZ [facility] [address] [place], [place] [id number] from Last 3 Months
[2024-06-26 21:05] VITALS: BP 143/96; PULSE 82; RESP 18; TEMP 36.5; O2SAT 97
--- NOTE | 2024-06-26 21:11 | ECG_ITS ---
Test Date: 2024-06-26 21:17:04 Measurements Intervals Harvest Rate: 59 P: 64 WY: 151 QRS: 72 QRSD: 84 T: 61 QT: 400 QTc: 398 Interpretive Statements SINUS BRADYCARDIA No previous ECG available for comparison Electronically Signed On 06-27-2024 16:14:00 [employer] by Simran Aguillon M.D.
--- NOTE | 2024-06-26 21:12 | ED.ABDPAIN ---
HPI - Abdominal Pain General Stated Complaint: abdominal pain Time Seen by Provider: 06/26/24 21:11 Source: patient Mode of arrival: ambulatory Limitations: no limitations History of Present Illness HPI narrative: patient is a 39-year-old with no significant past medical history smoker with no alcohol use, has a history of occasional heartburn, but has been having increasing heartburn symptoms epigastric discomfort with no chest pain no radiation of his pain no diarrhea constipation no fever chills no shortness of breath no diaphoresis. MD elicited complaint: abdominal pain Pertinent past history: other ( epigastric burning) Onset (ago): hour(s) Pain Consistency: constant Location: epigastric Severity: moderate Related Data Allergies Allergy/AdvReac Type Severity Reaction Status Date / Time No Known Allergies Allergy Verified 06/05/24 09:14 Review of Systems Review of Systems: All systems reviewed & are unremarkable except as noted in HPI and below PMFSH Past Medical History Medical History Joint pain Psoriasis Chronic fatigue DESIREE (obstructive sleep apnea) Daytime somnolence Environmental allergies Depression with anxiety Surgical History Surgical History No pertinent past surgical history Family History Family History Father Hypertension Grandparent Family history of lung cancer Social History Social History Smoking packs per day: 0.5 Smoking cigarettes per day: 10.0 Years smoked: 15 Smoking pack-years: 7.50 Smoking status: Current some day smoker Tobacco type: cigarettes Second hand tobacco smoke exposure: No Smoking end date: 03/23/21 Alcohol intake: never Substance use: never Substance use type: does not use Lack of Transportation: No Lack of Food: Never True Current Housing: I Have Housing Concerned About Future Housing: No Difficulty Paying Gas/Electric Bills: No Difficulty Paying for Meds: No Currently Unemployed: No Education: High School Diploma/GED Difficulty w/ Childcare or Family Care: No Gender identity (if verbalized by the patient): Male Exam Const: General: healthy appearing and no acute distress Nutritional Appearance: well nourished Orientation/consciousness: patient oriented x3 Limitations: no limitations HENMT: Head: normal to inspection Eyes: Conjunctivae: conjunctivae normal Neck: Neck: normal visual inspection and no lymphadenopathy Chest: Chest palpation & inspection: normal inspection of the chest Resp: Effort & Inspection: normal respiratory effort Auscultation: clear to auscultation bilaterally Cardio: Rate: regular rate Rhythm: regular rhythm GI: GI Palp: Yes Soft to palpation and Yes Tenderness to palpation present (GI) Other: Epigastric tenderness with palpation : General: Yes bladder normal to palpation Skin: General skin exam: normal color Rashes: no rashes Course Course Emergency Course: patient with epigastric burning received a dose of GI cocktail and after reassessment patient's symptoms have improved EKG performed and shows normal sinus rhythm. Vital Signs Vital signs: Vital Signs Temperature 36.5 C 06/26/24 21:05 Pulse Rate 82 06/26/24 21:05 Respiratory Rate 18 06/26/24 21:05 Blood Pressure 143/96 H 06/26/24 21:05 Pulse Oximetry 97 06/26/24 21:05 Oxygen Delivery Room Air 06/26/24 21:05 Temperature 36.5 C 06/26/24 21:05 Pulse Rate 82 06/26/24 21:05 Respiratory Rate 18 06/26/24 21:05 Blood Pressure 143/96 H 06/26/24 21:05 Pulse Oximetry 97 06/26/24 21:05 Oxygen Delivery Room Air 06/26/24 21:05 Critical Care Time Critical Care Time Critical Care Time: No Discharge Plan Discharge Clinical Impression: Heartburn symptom Patient Disposition: Home, Self-Care Condition: Stable Instructions: Antibiotic Form, GERD (Gastroesophageal Reflux Disease) (ED) Additional Instructions: advised patient to take medication as prescribed and to follow with primary care physician within 1 week for further evaluation treatment. Patient Language: Slovenian Prescriptions: New famotidine [Pepcid] 40 mg tablet 40 mg PO DAILY Qty: 30 0RF No Action triamcinolone acetonide 0.1 % cream 1 applic topical BID PRN (Reason: psoriasis) Qty: 454 0RF fluoxetine 40 mg capsule 40 mg PO DAILY Qty: 90 3RF Follow-up/Referrals: Jordyn Laguna MD [Primary Care Provider] -
[2024-06-26] MEDS: MAG HYDROX/ALUMINUM HYD/SIMETH 30 ML, PHENobarb/HYOSCY/ATROPINE/SCOP 32.4 MG, LIDOCAINE... PO (21:17)
--- OUTSIDE RECORDS SUMMARY | 2024-06-26 21:24 | XMS_ITS | Patient Health Summary ---
Author Organization [facility] [employer] Address [address] [place] [address] Care Team Providers Care Smelter Charger Name Role Phone Unavailable Primary Care Provider Unavailabl e Note from [facility],non-owned Affiliates and Associated Physician Practices is amultiple site organization consisting of ambulatory clinics and hospital sitesin [place], [place], [place] and [place]. This disclosure is being madepursuant to the Care Everywhere program and may not contain all information available regarding this patient. Last updated 18.[facility] [employer] Allergies No known active allergies Medications * Be aware that medications may not be up to date on this document. Alwaysverify current medications with the patient. * HYDROcodone-acetaminophen ([place]) 5-325 MG tablet(Started 05/06/2024) Take 1 (one) [...] Comments Blood Pressure 111/73 05/06/2024 10:22 PM EVALUATION MANAGER Pulse 92 05/06/2024 8:01 PM EVALUATION MANAGER Temperature 36.8 C (98.2 F) 05/06/2024 8:01 PM EVALUATION MANAGER Respiratory Rate 22 05/06/2024 8:01 PM EVALUATION MANAGER Oxygen Saturation 97% 05/06/2024 8:01 PM EVALUATION MANAGER Inhaled Oxygen Concentration - - Weight - - Height - - Body Mass Index - - Procedures * CT ABDOMEN PELVIS W CONTRAST(Performed 05/06/2024) Performed for Abdominal pain, right lower quadrant * URINALYSIS REFLEX MICROSCOPIC REFLEX CULTURE(Performed 05/06/2024) * LIPASE BLOOD(Performed 05/06/2024) * COMPREHENSIVE METABOLIC PANEL(Performed 05/06/2024) * CBC W AUTO DIFFERENTIAL(Performed 05/06/2024) Results * CT ABDOMEN PELVIS W CONTRAST (05/06/2024 7:36 PM EVALUATION MANAGER) Anatomical Region Laterality Modality Abdomen, Pelvis Computed Tomogra phy 05/06/2024 7:43 PM EVALUATION MANAGER Impressions 05/06/2024 7:50 PM EVALUATION MANAGER IMPRESSION: 1. Right obstructive uropathy due to a 5 mm calculus in the distal ampullary portion of the ureter. 2. Multiple additional nonobstructing right intrarenal stones > Interpreting Provider: Robert Gandhi MD on 05/06/2024 7:50 PM Narrative 05/06/2024 7:50 PM EVALUATION MANAGER PROCEDURE: CT ABDOMEN PELVIS W CONTRAST DATE/TIME [...] REFLEX MICROSCOPIC REFLEX CULTURE (05/06/2024 6:31 PM EVALUATION MANAGER) Color UA Yellow Yellow, Straw 05/06/2024 6:42 PM EVALUATION MANAGER [facility] Clarity UA Clear Clear 05/06/2024 6:42 PM EVALUATION MANAGER [facility] Glucose UA Normal Normal 05/06/2024 6:42 PM EVALUATION MANAGER [facility] Bilirubin UA Negative Negative 05/06/2024 6:42 PM EVALUATION MANAGER [facility] Ketone UA Trace(A) Negative 05/06/2024 6:42 PM EVALUATION MANAGER [facility] Specific [place] UA 1.028 1.005 - 1.030 05/06/2024 6:42 PM EVALUATION MANAGER [facility] Blood UA Negative Negative 05/06/2024 6:42 PM [facility] pH UA 5.0 5.0 - 9.0 pH 05/06/2024 6:42 PM EVALUATION MANAGER [facility] Protein UA Trace(A) Negative 05/06/2024 6:42 PM EVALUATION MANAGER [facility] Urobilinogen UA Normal Normal mg/dL 025 6:42 PM [facility] Nitrite UA Negative Negative 05/06/2024 6:42 PM EVALUATION MANAGER [facility] Leukocyte UA Negative Negative 05/06/2024 6:42 PM [facility] Urine URINE SPECIMEN OBTAINED BY CLEAN CATCH PROCEDURE / Unknown Collection / Unknown 05/06/2024 6:31 PM EVALUATION MANAGER 05/06/2024 6:36 PM EVALUATION MANAGER Narrative [facility] - 05/06/2024 6:42 PM EVALUATION MANAGER [facility] - URINALYSIS ORD ERABLES [facility] [address] [place] [address] * (ABNORMAL) CBC W AUTO DIFFERENTIAL (05/06/2024 6:31 PM [facility]) [facility] WBC 13.2(H) 4.0 - 10.7 x10E9/L 05/06/2024 6:41 PM [facility] RBC Count 4.64 4.30 - 5.80 x10E12/L 05/06/2024 6:41 PM [facility] Hemoglobin 14.5 13.3 - 17.5 g/dL 05/06/2024 6:41 PM [facility] Hematocrit 42.6 38.7 - 51.1 % 05/06/2024 6:41 PM [facility] MCV 91.8 80.0 - 98.0 fL 05/06/2024 6:41 PM [facility] MCH 31.3 26.7 - 33.6 pg 05/06/2024 6:41 PM [facility] MCHC 34.0 31.7 - 36.3 g/dL 05/06/2024 6:41 PM [facility] RDW-CV 11.9 11.3 - 14.8 % 05/06/2024 6:41 PM [facility] Platelet Count 263 150 - 420 x10E9/L 05/06/2024 6:41 PM [facility] MPV 9.0 7.8 - 11.4 fL 05/06/2024 6:41 PM [facility] Neutrophil % 75.0(H) 41.0 - 74.0 % 05/06/2024 6:41 PM [facility] Lymphocyte % 17.5 17.0 - 47.0 % 05/06/2024 6:41 PM [facility] Monocyte % 4.9 3.0 - 11.0 % 05/06/2024 6:41 PM [facility] Eosinophil % 1.5 0.0 - 7.0 % 05/06/2024 6:41 PM [facility] Basophil % 0.6 0.0 - 1.6 % 05/06/2024 6:41 PM [facility] Immature Granulocytes % 0.5 0.0 - 1.0 % 05/06/2024 6:41 PM [facility] Neutrophil Absolute 9.89(H) 1.60 - 7.50 x10E9/L 05/06/2024 6:41 PM [facility] Lymphocyte Absolute 2.30 1.00 - 4.40 x10E9/L 05/06/2024 6:41 PM [facility] Monocyte Absolute 0.65 0.15 - 1.00 x10E9/L 05/06/2024 6:41 PM [facility] Eosinophil Absolute 0.20 0.00 - 0.60 x10E9/L 05/06/2024 6:41 PM [facility] Basophil Absolute 0.08 0.00 - 0.13 x10E9/L 05/06/2024 6:41 PM [facility] Blood BLOOD SPECIMEN / Unknown Venipuncture / Unknown 05/06/2024 6:31 PM EVALUATION MANAGER 05/06/2024 6:36 PM EVALUATION MANAGER [facility] - HEMATOLOGY ORD ERABLES Performing Organization Address City/State/[facility] Co de Phone Number [facility] [address] [place] [address] * (ABNORMAL) COMPREHENSIVE METABOLIC PANEL (05/06/2024 6:31 PM EVALUATION MANAGER) Glucose 113(H) 70 - 99 mg/dL 05/06/2024 6:52 PM [facility] Sodium 137 136 - 145 mmol/L 05/06/2024 6:52 PM [facility] Potassium 3.7 3.5 - 5.1 mmol/L 05/06/2024 6:52 PM [facility] Chloride 103 98 - 107 mmol/L 05/06/2024 6:52 PM [facility] CO2 26 22 - 29 mmol/L 05/06/2024 6:52 PM [facility] Calcium 9.0 8.4 - 10.4 mg/dL 05/06/2024 6:52 PM [facility] Anion Gap 8 6 - 16 mmol/L 05/06/2024 6:52 PM [facility] BUN 15 5.3 - 18.7 mg/dL 05/06/2024 6:52 PM [facility] Creatinine 1.01 0.72 - 1.25 mg/dL 05/06/2024 6:52 PM EVALUATION MANAGER [facility] Alkaline Phosphatase 75 40 - 150 U/L 05/06/2024 6:52 PM EVALUATION MANAGER [facility] ALT 31 0 - 55 U/L 05/06/2024 6:52 PM EVALUATION MANAGER [facility] AST 23 5 - 34 U/L 05/06/2024 6:52 PM [facility] Protein Total 7.9 6.4 - 8.3 gm/dL 05/06/2024 6:52 PM EVALUATION MANAGER [facility] Albumin 4.6 3.4 - 5.0 gm/dL 05/06/2024 6:52 PM EVALUATION MANAGER [facility] Bilirubin Total 1.1 0.2 - 1.2 mg/dL 05/06/2024 6:52 PM [facility] eGFR by CKD-EPI >90 >=90 mL/min/1.7 3 m2 05/06/2024 6:52 PM EVALUATION MANAGER [facility] Blood BLOOD SPECIMEN / Unknown Venipuncture / Unknown 05/06/2024 6:31 PM EVALUATION MANAGER 05/06/2024 6:36 PM EVALUATION MANAGER [facility] - CHEMISTRY VALERIE SANCHEZ [facility] [address] [place] [address] * LIPASE BLOOD (05/06/2024 6:31 PM EVALUATION MANAGER) Lipase 18 <60 U/L 05/06/2024 6:52 PM EVALUATION MANAGER [facility] Blood BLOOD SPECIMEN / Unknown Venipuncture / Unknown 05/06/2024 6:31 PM EVALUATION MANAGER 05/06/2024 6:36 PM EVALUATION MANAGER [facility] - CHEMISTRY VALERIE SANCHEZ [facility] [address] [place] [address]
--- OUTSIDE RECORDS SUMMARY | 2024-06-26 21:24 | XMS_ITS | Referral Summary ---
Author Organization [facility] Address [address] [place] [address] Care Team Providers Care Gateman Name Role Phone Unavailable Primary Care Provider Unavailabl e Source Comments [facility],non-owned Affiliates and Associated Physician Practices is amultiple site organization consisting of ambulatory clinics and hospital sitesin [place], [place], [place] and [place]. This disclosure is being madepursuant to the Care Everywhere program and may not contain all information available regarding this patient. Last updated 18.[facility] Encounters Date Type Department Care Team Description 05/06/2024 Travel 05/06/2024 6:23 PM LINING CUTTER - 05/06/2024 10:25 PM LINING CUTTER Emergency ER at [address] [address] Kidney stone (Primary Dx); Abdominal pain, right lower quadrant Discharge Disposition: Home or Self Care from Last 3 Months Allergies No known active allergies Medications * Be aware that medications may not be up to date on this document. Alwaysverify current medications with the patient. Medication Sig Dispensed Refills Start Date End Date Status HYDROcodone-acetamin ophen ([place]) 5-325 MG tabletIndications:Ki dney stone Take 1 [...] Comments Blood Pressure 111/73 05/06/2024 10:22 PM LINING CUTTER Pulse 92 05/06/2024 8:01 PM LINING CUTTER Temperature 36.8 C (98.2 F) 05/06/2024 8:01 PM LINING CUTTER Respiratory Rate 22 05/06/2024 8:01 PM LINING CUTTER Oxygen Saturation 97% 05/06/2024 8:01 PM LINING CUTTER Inhaled Oxygen Concentration - - Weight - - Height - - Body Mass Index - - Plan of Treatment Not on file Procedures Procedure Name Priority Date/Time Associated Diagnosis Comments CT ABDOMEN PELVIS W CONTRAST STAT 05/06/2024 7:36 PM LINING CUTTER Abdominal pain, right lower quadrant URINALYSIS REFLEX MICROSCOPIC REFLEX CULTURE STAT 05/06/2024 6:31 PM LINING CUTTER LIPASE BLOOD STAT 05/06/2024 6:31 PM LINING CUTTER COMPREHENSIVE METABOLIC PANEL STAT 05/06/2024 6:31 PM LINING CUTTER CBC W AUTO DIFFERENTIAL STAT 05/06/2024 6:31 PM LINING CUTTER from Last 3 Months Results * CT ABDOMEN PELVIS W CONTRAST (05/06/2024 7:36 PM LINING CUTTER) Anatomical Region Laterality Modality Abdomen, Pelvis Computed Tomogra phy 05/06/2024 7:43 PM LINING CUTTER Impressions 05/06/2024 7:50 PM LINING CUTTER IMPRESSION: 1. Right obstructive uropathy due to a 5 mm calculus in the distal ampullary portion of the ureter. 2. Multiple additional nonobstructing right intrarenal stones > Interpreting Provider: Robert Gandhi MD on 05/06/2024 7:50 PM Narrative 05/06/2024 7:50 PM LINING CUTTER PROCEDURE: CT ABDOMEN PELVIS W CONTRAST DATE/TIME [...] REFLEX MICROSCOPIC REFLEX CULTURE (05/06/2024 6:31 PM LINING CUTTER) Color UA Yellow Yellow, Straw 05/06/2024 6:42 PM LINING CUTTER [facility] Clarity UA Clear Clear 05/06/2024 6:42 PM LINING CUTTER [facility] Glucose UA Normal Normal 05/06/2024 6:42 PM LINING CUTTER [facility] Bilirubin UA Negative Negative 05/06/2024 6:42 PM LINING CUTTER [facility] Ketone UA Trace(A) Negative 05/06/2024 6:42 PM LINING CUTTER [facility] Specific [place] UA 1.028 1.005 - 1.030 05/06/2024 6:42 PM LINING CUTTER [facility] Blood UA Negative Negative 05/06/2024 6:42 PM LINING CUTTER [facility] pH UA 5.0 5.0 - 9.0 pH 05/06/2024 6:42 PM LINING CUTTER [facility] Protein UA Trace(A) Negative 05/06/2024 6:42 PM [facility] Urobilinogen UA Normal Normal mg/dL 025 6:42 PM [facility] Nitrite UA Negative Negative 05/06/2024 6:42 PM [facility] Leukocyte UA Negative Negative 05/06/2024 6:42 PM [facility] Urine URINE SPECIMEN OBTAINED BY CLEAN CATCH PROCEDURE / Unknown Collection / Unknown 05/06/2024 6:31 PM LINING CUTTER 05/06/2024 6:36 PM LINING CUTTER [facility] - 05/06/2024 6:42 PM LINING CUTTER [facility] SM[facility] - URINALYSIS ORD ERABLES [facility] [address] [place], [place] [id number] * (ABNORMAL) CBC W AUTO DIFFERENTIAL (05/06/2024 6:31 PM LINING CUTTER) WBC 13.2(H) 4.0 - 10.7 x10E9/L 05/06/2024 [...] Unknown Venipuncture / Unknown 05/06/2024 6:31 PM LINING CUTTER 05/06/2024 6:36 PM [facility] Elsi SMITH LAB - HEMATOLOGY ORD ERABLES [facility] [address] [place] [address] * (ABNORMAL) COMPREHENSIVE METABOLIC PANEL (05/06/2024 6:31 PM LINING CUTTER) [facility] Glucose 113(H) 70 - 99 mg/dL 05/06/2024 [...] Unknown Venipuncture / Unknown 05/06/2024 6:31 PM LINING CUTTER 05/06/2024 6:36 PM [facility] Elsi SMITH [facility] - CHEMISTRY VALERIE Teran Organization Address City/State/ZIP Co de Phone Number [facility] [address] [place], [place] [id number] * LIPASE BLOOD (05/06/2024 6:31 PM LINING CUTTER) Lipase 18 <60 U/L 05/06/2024 6:52 PM LINING CUTTER [facility] Blood BLOOD SPECIMEN / Unknown Venipuncture / Unknown 05/06/2024 6:31 PM LINING CUTTER 05/06/2024 6:36 PM LINING CUTTER [facility] - CHEMISTRY VALERIE SANCHEZ Performing Organization Address City/State/[facility] Co de Phone Number [facility] [address] [place] [address] from Last 3 Months
--- OUTSIDE RECORDS SUMMARY | 2024-06-26 21:24 | XMS_ITS | Clinical Summary ---
Author Organization [facility] Address [address] [address] Care Team Providers Care Pipe Buffer Name Role Phone Unavailable Primary Care Provider Unavailabl e Source Comments [facility],non-owned Affiliates and Associated Physician Practices is amultiple site organization consisting of ambulatory clinics and hospital sitesin [place], [place], [place] and [place]. This disclosure is being madepursuant to the Care Everywhere program and may not contain all information available regarding this patient. Last updated 18.[facility] Allergies No known active allergies Medications * Be aware that medications may not be up to date on this document. Alwaysverify current medications with the patient. Medication Sig Dispensed Refills Start Date End Date Status HYDROcodone-acetamin ophen ([place]) 5-325 MG tabletIndications:Ki dney stone Take 1 (one) tablet by mouth every 6 hours as needed for Pain 12 tablet 05/06/2024 Active ondansetron, disintegrating, (Zofran ODT) 4 MG tablet Take 1 (one) tablet by mouth every 6 hours as needed for Nausea/Vomiting Allow tablet to dissolve on the tongue 20 tablet 05/06/2024 Active Encounters Date Type Department Care Team Description 05/06/2024 6:23 PM CAR SHAGGER - 05/06/2024 10:25 PM CAR SHAGGER Emergency ER at [address] [address] Kidney stone (Primary Dx); Abdominal [...] Comments Blood Pressure 111/73 05/06/2024 10:22 PM CAR SHAGGER Pulse 92 05/06/2024 8:01 PM CAR SHAGGER Temperature 36.8 C (98.2 F) 05/06/2024 8:01 PM CAR SHAGGER Respiratory Rate 22 05/06/2024 8:01 PM CAR SHAGGER Oxygen Saturation 97% 05/06/2024 8:01 PM CAR SHAGGER Inhaled Oxygen Concentration - - Weight - [...] PELVIS W CONTRAST STAT 05/06/2024 7:36 PM CAR SHAGGER Abdominal pain, right lower quadrant URINALYSIS REFLEX MICROSCOPIC REFLEX CULTURE STAT 05/06/2024 6:31 PM CAR SHAGGER LIPASE BLOOD STAT 05/06/2024 6:31 PM CAR SHAGGER COMPREHENSIVE METABOLIC PANEL STAT 05/06/2024 6:31 PM CAR SHAGGER CBC W AUTO DIFFERENTIAL STAT 05/06/2024 6:31 PM CAR SHAGGER from Last 3 Months Results * CT ABDOMEN PELVIS W CONTRAST (05/06/2024 7:36 PM CAR SHAGGER) Anatomical Region Laterality Modality Abdomen, Pelvis Computed Tomogra phy 05/06/2024 7:43 PM CAR SHAGGER Impressions 05/06/2024 7:50 PM CAR SHAGGER IMPRESSION: 1. Right obstructive uropathy due to a 5 mm calculus in the distal ampullary portion of the ureter. 2. Multiple additional nonobstructing right intrarenal stones > Interpreting Provider: Robert Gandhi MD on 05/06/2024 7:50 PM Narrative 05/06/2024 7:50 PM CAR SHAGGER PROCEDURE: CT ABDOMEN PELVIS W CONTRAST DATE/TIME [...] REFLEX MICROSCOPIC REFLEX CULTURE (05/06/2024 6:31 PM CAR SHAGGER) Color UA Yellow Yellow, Straw 05/06/2024 6:42 PM CAR SHAGGER [facility] Clarity UA Clear Clear 05/06/2024 6:42 PM CAR SHAGGER [facility] Glucose UA Normal Normal 05/06/2024 6:42 PM CAR SHAGGER [facility] Bilirubin UA Negative Negative 05/06/2024 6:42 PM CAR SHAGGER [facility] Ketone UA Trace(A) Negative 05/06/2024 6:42 PM CAR SHAGGER [facility] Specific [place] UA 1.028 1.005 - 1.030 05/06/2024 6:42 PM CAR SHAGGER [facility] Blood UA Negative Negative 05/06/2024 6:42 PM CAR SHAGGER [facility] pH UA 5.0 5.0 - 9.0 pH 05/06/2024 6:42 PM CAR SHAGGER [facility] Protein UA Trace(A) Negative 05/06/2024 6:42 PM CAR SHAGGER [facility] Urobilinogen UA Normal Normal mg/dL 025 6:42 PM CAR SHAGGER [facility] Nitrite UA Negative Negative 05/06/2024 6:42 PM CAR SHAGGER [facility] Leukocyte UA Negative Negative 05/06/2024 6:42 PM [facility] Urine URINE SPECIMEN OBTAINED BY CLEAN CATCH PROCEDURE / Unknown Collection / Unknown 05/06/2024 6:31 PM CAR SHAGGER 05/06/2024 6:36 PM CAR SHAGGER Narrative [facility] - 05/06/2024 6:42 PM CAR SHAGGER Elsi SMITH [facility] - URINALYSIS ORD ERABLES [facility] [address] [place] [address] * (ABNORMAL) CBC W AUTO DIFFERENTIAL (05/06/2024 6:31 PM CAR SHAGGER) WBC 13.2(H) 4.0 - 10.7 x10E9/L 05/06/2024 6:41 PM CAR SHAGGER [facility] RBC Count 4.64 4.30 - 5.80 [...] Unknown Venipuncture / Unknown 05/06/2024 6:31 PM CAR SHAGGER 05/06/2024 6:36 PM [facility] Elsi SMITH LAB - HEMATOLOGY ORD ERABLES [facility] [address] [place] [address] * (ABNORMAL) COMPREHENSIVE METABOLIC PANEL (05/06/2024 6:31 PM [facility]) Glucose 113(H) 70 - 99 mg/dL [...] 6.4 - 8.3 gm/dL 05/06/2024 6:52 PM CAR SHAGGER [facility] Albumin 4.6 3.4 - 5.0 gm/dL 05/06/2024 6:52 PM CAR SHAGGER [facility] Bilirubin Total 1.1 0.2 - 1.2 mg/dL 05/06/2024 6:52 PM CAR SHAGGER [facility] eGFR by CKD-EPI >90 >=90 mL/min/1.7 3 m2 05/06/2024 6:52 PM CAR SHAGGER [facility] Blood BLOOD SPECIMEN / Unknown Venipuncture / Unknown 05/06/2024 6:31 PM CAR SHAGGER 05/06/2024 6:36 PM CAR SHAGGER [facility] - CHEMISTRY VALERIE SANCHEZ [facility] [address] [place] [address] * LIPASE BLOOD (05/06/2024 6:31 PM CAR SHAGGER) Lipase 18 <60 U/L 05/06/2024 6:52 PM CAR SHAGGER [facility] Blood BLOOD SPECIMEN / Unknown Venipuncture / Unknown 05/06/2024 6:31 PM CAR SHAGGER 05/06/2024 6:36 PM CAR SHAGGER [facility] - CHEMISTRY VALERIE SANCHEZ [facility] [address] [place], [place] [id number] from Last 3 Months
== END 2024-06-26 21:28 | disposition home or self-care (01) ==
LOC: CHSED 21:22
PROVIDERS: Emergency Provider Emergency Medicine; PCP Family Medicine
DX: R12 Heartburn (principal); F17.210 Nicotine dependence, cigarettes, uncomplicated
CPT/HCPCS: 93005; 99283; A9270

== ENCOUNTER 2024-06-28 15:22 | Emergency (ER) | payer OTHER, SELFPAY ==
[2024-06-28 15:22] VITALS: BP 129/88; PULSE 88; RESP 16; TEMP 37.1; O2SAT 98
--- OUTSIDE RECORDS SUMMARY | 2024-06-28 15:25 | XMS_ITS | Clinical Summary ---
Author Organization [facility] Address [address] [facility] [place] [address] Care Team Providers Care Sound Equipment Mechanic Name Role Phone Unavailable Primary Care Provider Unavailabl e Source Comments [facility],non-owned Affiliates and Associated Physician Practices is amultiple site organization consisting of ambulatory clinics and hospital sitesin [place], [place] and [place]. This disclosure is being madepursuant to the Care Everywhere program and may not contain all information available regarding this patient. Last updated 18.[facility] Allergies No known active allergies Medications * Be aware that medications may not be up to date on this document. Alwaysverify current medications with the patient. Medication Sig Dispensed Refills Start Date End Date Status HYDROcodone-acetamin ophen ([place]) 5-325 MG tabletIndications:Ki dney stone Take 1 (one) tablet by mouth every 6 hours as needed for Pain 12 tablet 05/06/2024 Active ondansetron, disintegrating, (Zofran ODT) 4 MG tablet Take 1 (one) tablet by mouth every 6 hours as needed for Nausea/Vomiting Allow tablet to dissolve on the tongue 20 tablet 05/06/2024 Active Encounters Date Type Department Care Team Description 05/06/2024 6:23 PM TRAFFIC ATTENDANT - 05/06/2024 10:25 PM TRAFFIC ATTENDANT Emergency ER at [address] [address] Kidney stone (Primary Dx); Abdominal [...] Comments Blood Pressure 111/73 05/06/2024 10:22 PM TRAFFIC ATTENDANT Pulse 92 05/06/2024 8:01 PM TRAFFIC ATTENDANT Temperature 36.8 C (98.2 F) 05/06/2024 8:01 PM TRAFFIC ATTENDANT Respiratory Rate 22 05/06/2024 8:01 PM TRAFFIC ATTENDANT Oxygen Saturation 97% 05/06/2024 8:01 PM TRAFFIC ATTENDANT Inhaled Oxygen Concentration - - Weight - [...] PELVIS W CONTRAST STAT 05/06/2024 7:36 PM TRAFFIC ATTENDANT Abdominal pain, right lower quadrant URINALYSIS REFLEX MICROSCOPIC REFLEX CULTURE STAT 05/06/2024 6:31 PM TRAFFIC ATTENDANT LIPASE BLOOD STAT 05/06/2024 6:31 PM TRAFFIC ATTENDANT COMPREHENSIVE METABOLIC PANEL STAT 05/06/2024 6:31 PM TRAFFIC ATTENDANT CBC W AUTO DIFFERENTIAL STAT 05/06/2024 6:31 PM TRAFFIC ATTENDANT from Last 3 Months Results * CT ABDOMEN PELVIS W CONTRAST (05/06/2024 7:36 PM TRAFFIC ATTENDANT) Anatomical Region Laterality Modality Abdomen, Pelvis Computed Tomogra phy 05/06/2024 7:43 PM TRAFFIC ATTENDANT Impressions 05/06/2024 7:50 PM TRAFFIC ATTENDANT IMPRESSION: 1. Right obstructive uropathy due to a 5 mm calculus in the distal ampullary portion of the ureter. 2. Multiple additional nonobstructing right intrarenal stones > Interpreting Provider: Robert Gandhi MD on 05/06/2024 7:50 PM Narrative 05/06/2024 7:50 PM TRAFFIC ATTENDANT PROCEDURE: CT ABDOMEN PELVIS W CONTRAST DATE/TIME [...] REFLEX MICROSCOPIC REFLEX CULTURE (05/06/2024 6:31 PM TRAFFIC ATTENDANT) Color UA Yellow Yellow, Straw 05/06/2024 6:42 PM TRAFFIC ATTENDANT [facility] Clarity UA Clear Clear 05/06/2024 6:42 PM TRAFFIC ATTENDANT [facility] Glucose UA Normal Normal 05/06/2024 6:42 PM TRAFFIC ATTENDANT [facility] Bilirubin UA Negative Negative 05/06/2024 6:42 PM TRAFFIC ATTENDANT [facility] Ketone UA Trace(A) Negative 05/06/2024 6:42 PM TRAFFIC ATTENDANT [facility] Specific [place] UA 1.028 1.005 - 1.030 05/06/2024 6:42 PM TRAFFIC ATTENDANT [facility] Blood UA Negative Negative 05/06/2024 6:42 PM TRAFFIC ATTENDANT [facility] pH UA 5.0 5.0 - 9.0 pH 05/06/2024 6:42 PM TRAFFIC ATTENDANT [facility] Protein UA Trace(A) Negative 05/06/2024 6:42 PM TRAFFIC ATTENDANT [facility] Urobilinogen UA Normal Normal mg/dL 025 6:42 PM TRAFFIC ATTENDANT [facility] Nitrite UA Negative Negative 05/06/2024 6:42 PM TRAFFIC ATTENDANT [facility] Leukocyte UA Negative Negative 05/06/2024 6:42 PM [facility] Urine URINE SPECIMEN OBTAINED BY CLEAN CATCH PROCEDURE / Unknown Collection / Unknown 05/06/2024 6:31 PM TRAFFIC ATTENDANT 05/06/2024 6:36 PM TRAFFIC ATTENDANT Narrative [facility] - 05/06/2024 6:42 PM TRAFFIC ATTENDANT [facility] - URINALYSIS ORD ERABLES [facility] [address] [place] [address] * (ABNORMAL) CBC W AUTO DIFFERENTIAL (05/06/2024 6:31 PM TRAFFIC ATTENDANT) WBC 13.2(H) 4.0 - 10.7 x10E9/L 05/06/2024 6:41 PM TRAFFIC ATTENDANT [facility] RBC Count 4.64 4.30 - 5.80 x10E12/L 05/06/2024 6:41 PM [facility] Hemoglobin 14.5 13.3 - 17.5 g/dL 05/06/2024 6:41 PM [facility] Hematocrit 42.6 38.7 - 51.1 % 05/06/2024 6:41 PM [facility] MCV 91.8 80.0 - 98.0 fL 05/06/2024 6:41 PM [facility] MCH 31.3 26.7 - 33.6 pg 05/06/2024 6:41 PM [facility] MCHC 34.0 31.7 - 36.3 g/dL 05/06/2024 6:41 PM [facility] RDW-CV 11.9 11.3 - 14.8 % 05/06/2024 6:41 PM [facility] Platelet Count 263 150 - 420 x10E9/L 05/06/2024 6:41 PM [facility] MPV 9.0 7.8 - 11.4 fL 05/06/2024 6:41 PM [facility] Neutrophil % 75.0(H) 41.0 - 74.0 % 05/06/2024 6:41 PM [facility] Lymphocyte % 17.5 17.0 - 47.0 % 05/06/2024 6:41 PM [facility] Monocyte % 4.9 3.0 - 11.0 % 05/06/2024 6:41 PM [facility] Eosinophil % 1.5 0.0 - 7.0 % 05/06/2024 6:41 PM [facility] Basophil % 0.6 0.0 - 1.6 % 05/06/2024 6:41 PM [facility] Immature Granulocytes % 0.5 0.0 - 1.0 % 05/06/2024 6:41 PM [facility] Neutrophil Absolute 9.89(H) 1.60 - 7.50 x10E9/L 05/06/2024 6:41 PM [facility] Lymphocyte Absolute 2.30 1.00 - 4.40 x10E9/L 05/06/2024 6:41 PM [facility] Monocyte Absolute 0.65 0.15 - 1.00 x10E9/L 05/06/2024 6:41 PM [facility] Eosinophil Absolute 0.20 0.00 - 0.60 x10E9/L 05/06/2024 6:41 PM [facility] Basophil Absolute 0.08 0.00 - 0.13 x10E9/L 05/06/2024 6:41 PM [facility] Blood BLOOD SPECIMEN / Unknown Venipuncture / Unknown 05/06/2024 6:31 PM TRAFFIC ATTENDANT 05/06/2024 6:[address] [facility] - HEMATOLOGY ORD ERABLES [facility] [address] [place] [address] * (ABNORMAL) COMPREHENSIVE METABOLIC PANEL (05/06/2024 6:[address] [facility]) Glucose 113(H) 70 - 99 mg/dL 05/06/2024 6:52 PM [facility] Sodium 137 136 - 145 mmol/L 05/06/2024 6:52 PM [facility] Potassium 3.7 3.5 - 5.1 mmol/L 05/06/2024 6:52 PM [facility] Chloride 103 98 - 107 mmol/L 05/06/2024 6:52 PM [facility] CO2 26 22 - 29 mmol/L 05/06/2024 6:52 PM [facility] Calcium 9.0 8.4 - 10.4 mg/dL 05/06/2024 6:52 PM [facility] Anion Gap 8 6 - 16 mmol/L 05/06/2024 6:52 PM [facility] BUN 15 5.3 - 18.7 mg/dL 05/06/2024 6:52 PM [facility] Creatinine 1.01 0.72 - 1.25 mg/dL 05/06/2024 6:52 PM [facility] Alkaline Phosphatase 75 40 - 150 U/L 05/06/2024 6:52 PM [facility] ALT 31 0 - 55 U/L 05/06/2024 6:52 PM [facility] AST 23 5 - 34 U/L 05/06/2024 6:52 PM [facility] Protein Total 7.9 6.4 - 8.3 gm/dL 05/06/2024 6:52 PM TRAFFIC ATTENDANT [facility] Albumin 4.6 3.4 - 5.0 gm/dL 05/06/2024 6:52 PM TRAFFIC ATTENDANT [facility] Bilirubin Total 1.1 0.2 - 1.2 mg/dL 05/06/2024 6:52 PM TRAFFIC ATTENDANT [facility] eGFR by CKD-EPI >90 >=90 mL/min/1.7 3 m2 05/06/2024 6:52 PM TRAFFIC ATTENDANT [facility] Blood BLOOD SPECIMEN / Unknown Venipuncture / Unknown 05/06/2024 6:31 PM TRAFFIC ATTENDANT 05/06/2024 6:36 PM TRAFFIC ATTENDANT [facility] - CHEMISTRY VALERIE SANCHEZ [facility] [address] [place] [address] * LIPASE BLOOD (05/06/2024 6:31 PM TRAFFIC ATTENDANT) Lipase 18 <60 U/L 05/06/2024 6:52 PM TRAFFIC ATTENDANT [facility] Blood BLOOD SPECIMEN / Unknown Venipuncture / Unknown 05/06/2024 6:31 PM TRAFFIC ATTENDANT 05/06/2024 6:36 PM TRAFFIC ATTENDANT [facility] - CHEMISTRY VALERIE SANCHEZ [facility] [address] [place], [place] [id number] from Last 3 Months
--- OUTSIDE RECORDS SUMMARY | 2024-06-28 15:25 | XMS_ITS | Referral Summary ---
Author Organization [facility] Address [address] [place] [address] Care Team Providers Care Polisher Balance Screwhead Name Role Phone Unavailable Primary Care Provider Unavailabl e Source Comments [facility],non-owned Affiliates and Associated Physician Practices is amultiple site organization consisting of ambulatory clinics and hospital sitesin [place], [place], [place] and [place]. This disclosure is being madepursuant to the Care Everywhere program and may not contain all information available regarding this patient. Last updated 18.[facility] Encounters Date Type Department Care Team Description 05/06/2024 Travel 05/06/2024 6:23 PM IT RECRUITER - 05/06/2024 10:25 PM IT RECRUITER Emergency ER at [address] [address] Kidney stone (Primary Dx); Abdominal pain, right lower quadrant Discharge Disposition: Home or Self Care from Last 3 Months Allergies No known active allergies Medications * Be aware that medications may not be up to date on this document. Alwaysverify current medications with the patient. Medication Sig Dispensed Refills Start Date End Date Status HYDROcodone-acetamin ophen ([place]) 5-325 MG tabletIndications:Ki dney stone Take 1 [...] Comments Blood Pressure 111/73 05/06/2024 10:22 PM IT RECRUITER Pulse 92 05/06/2024 8:01 PM IT RECRUITER Temperature 36.8 C (98.2 F) 05/06/2024 8:01 PM IT RECRUITER Respiratory Rate 22 05/06/2024 8:01 PM IT RECRUITER Oxygen Saturation 97% 05/06/2024 8:01 PM IT RECRUITER Inhaled Oxygen Concentration - - Weight - - Height - - Body Mass Index - - Plan of Treatment Not on file Procedures Procedure Name Priority Date/Time Associated Diagnosis Comments CT ABDOMEN PELVIS W CONTRAST STAT 05/06/2024 7:36 PM IT RECRUITER Abdominal pain, right lower quadrant URINALYSIS REFLEX MICROSCOPIC REFLEX CULTURE STAT 05/06/2024 6:31 PM IT RECRUITER LIPASE BLOOD STAT 05/06/2024 6:31 PM IT RECRUITER COMPREHENSIVE METABOLIC PANEL STAT 05/06/2024 6:31 PM IT RECRUITER CBC W AUTO DIFFERENTIAL STAT 05/06/2024 6:31 PM IT RECRUITER from Last 3 Months Results * CT ABDOMEN PELVIS W CONTRAST (05/06/2024 7:36 PM IT RECRUITER) Anatomical Region Laterality Modality Abdomen, Pelvis Computed Tomogra phy 05/06/2024 7:43 PM IT RECRUITER Impressions 05/06/2024 7:50 PM IT RECRUITER IMPRESSION: 1. Right obstructive uropathy due to a 5 mm calculus in the distal ampullary portion of the ureter. 2. Multiple additional nonobstructing right intrarenal stones > Interpreting Provider: Robert Gandhi MD on 05/06/2024 7:50 PM Narrative 05/06/2024 7:50 PM IT RECRUITER PROCEDURE: CT ABDOMEN PELVIS W CONTRAST DATE/TIME [...] REFLEX MICROSCOPIC REFLEX CULTURE (05/06/2024 6:31 PM IT RECRUITER) Color UA Yellow Yellow, Straw 05/06/2024 6:42 PM IT RECRUITER [facility] Clarity UA Clear Clear 05/06/2024 6:42 PM IT RECRUITER [facility] Glucose UA Normal Normal 05/06/2024 6:42 PM IT RECRUITER [facility] Bilirubin UA Negative Negative 05/06/2024 6:42 PM IT RECRUITER [facility] Ketone UA Trace(A) Negative 05/06/2024 6:42 PM IT RECRUITER [facility] Specific [place] UA 1.028 1.005 - 1.030 05/06/2024 6:42 PM IT RECRUITER [facility] Blood UA Negative Negative 05/06/2024 6:42 PM IT RECRUITER [facility] pH UA 5.0 5.0 - 9.0 pH 05/06/2024 6:42 PM IT RECRUITER [facility] Protein UA Trace(A) Negative 05/06/2024 6:[address] [facility] Urobilinogen UA Normal Normal mg/dL 025 6:[address] [facility] Nitrite UA Negative Negative 05/06/2024 6:[address] [facility] Leukocyte UA Negative Negative 05/06/2024 6:[address] [facility] Urine URINE SPECIMEN OBTAINED BY CLEAN CATCH PROCEDURE / Unknown Collection / Unknown 05/06/2024 6:31 PM IT RECRUITER 05/06/2024 6:36 PM IT RECRUITER [facility] - 05/06/2024 6:42 PM IT RECRUITER [facility] - URINALYSIS ORD ERABLES [facility] [address] [place], [place] [id number] * (ABNORMAL) CBC W AUTO DIFFERENTIAL (05/06/2024 6:31 PM IT RECRUITER) WBC 13.2(H) 4.0 - 10.7 x10E9/L 05/06/2024 6:[address] [facility] RBC Count 4.64 4.30 - 5.80 x10E12/L 05/06/2024 6:[address] [facility] Hemoglobin 14.5 13.3 - 17.5 g/dL 05/06/2024 6:[address] [facility] Hematocrit 42.6 38.7 - 51.1 % 05/06/2024 6:[address] [facility] MCV 91.8 80.0 - 98.0 fL 05/06/2024 6:[address] [facility] MCH 31.3 26.7 - 33.6 pg 05/06/2024 6:[address] [facility] MCHC 34.0 31.7 - 36.3 g/dL 05/06/2024 6:[address] [facility] RDW-CV 11.9 11.3 - 14.8 % 05/06/2024 6:[address] [facility] Platelet Count 263 150 - 420 x10E9/L 05/06/2024 6:[address] [facility] MPV 9.0 7.8 - 11.4 fL 05/06/2024 6:[address] [facility] Neutrophil % 75.0(H) 41.0 - 74.0 % 05/06/2024 6:[address] [facility] Lymphocyte % 17.5 17.0 - 47.0 % 05/06/2024 6:[address] [facility] Monocyte % 4.9 3.0 - 11.0 % 05/06/2024 6:[address] [facility] Eosinophil % 1.5 0.0 - 7.0 % 05/06/2024 6:[address] [facility] Basophil % 0.6 0.0 - 1.6 % 05/06/2024 6:[address] [facility] Immature Granulocytes % 0.5 0.0 - 1.0 % 05/06/2024 6:[address] [facility] Neutrophil Absolute 9.89(H) 1.60 - 7.50 x10E9/L 05/06/2024 6:[address] [facility] Lymphocyte Absolute 2.30 1.00 - 4.40 x10E9/L 05/06/2024 6:[address] [facility] Monocyte Absolute 0.65 0.15 - 1.00 x10E9/L 05/06/2024 6:[address] [facility] Eosinophil Absolute 0.20 0.00 - 0.60 x10E9/L 05/06/2024 6:[address] [facility] Basophil Absolute 0.08 0.00 - 0.13 x10E9/L 05/06/2024 6:[address] [facility] Blood BLOOD SPECIMEN / Unknown Venipuncture / Unknown 05/06/2024 6:31 PM IT RECRUITER 05/06/2024 6:36 PM [facility] - HEMATOLOGY ORD ERABLES [facility] [address] [place] [address] * (ABNORMAL) COMPREHENSIVE METABOLIC PANEL (05/06/2024 6:31 PM IT RECRUITER) [facility] Glucose 113(H) 70 - 99 mg/dL 05/06/2024 6:[address] [facility] Sodium 137 136 - 145 mmol/L 05/06/2024 6:[address] [facility] Potassium 3.7 3.5 - 5.1 mmol/L 05/06/2024 6:[address] [facility] Chloride 103 98 - 107 mmol/L 05/06/2024 6:[address] [facility] CO2 26 22 - 29 mmol/L 05/06/2024 6:[address] [facility] Calcium 9.0 8.4 - 10.4 mg/dL 05/06/2024 6:[address] [facility] Anion Gap 8 6 - 16 mmol/L 05/06/2024 6:[address] [facility] BUN 15 5.3 - 18.7 mg/dL 05/06/2024 6:[address] [facility] Creatinine 1.01 0.72 - 1.25 mg/dL 05/06/2024 6:[address] [facility] Alkaline Phosphatase 75 40 - 150 U/L 05/06/2024 6:[address] [facility] ALT 31 0 - 55 U/L 05/06/2024 6:[address] [facility] AST 23 5 - 34 U/L 05/06/2024 6:[address] [facility] Protein Total 7.9 6.4 - 8.3 gm/dL 05/06/2024 6:[address] [facility] Albumin 4.6 3.4 - 5.0 gm/dL 05/06/2024 6:[address] [facility] Bilirubin Total 1.1 0.2 - 1.2 mg/dL 05/06/2024 6:[address] [facility] eGFR by CKD-EPI >90 >=90 mL/min/1.7 3 m2 05/06/2024 6:[address] [facility] Blood BLOOD SPECIMEN / Unknown Venipuncture / Unknown 05/06/2024 6:31 PM IT RECRUITER 05/06/2024 6:36 PM [facility] - CHEMISTRY VALERIE Teran Organization Address City/State/ZIP Co de Phone Number [facility] [address] [place], [place] [phone] * LIPASE BLOOD (05/06/2024 6:31 PM IT RECRUITER) Lipase 18 <60 U/L 05/06/2024 6:52 PM IT RECRUITER [facility] Blood BLOOD SPECIMEN / Unknown Venipuncture / Unknown 05/06/2024 6:31 PM IT RECRUITER 05/06/2024 6:36 PM IT RECRUITER [facility] - CHEMISTRY VALERIE SANCHEZ Performing Organization Address City/State/[facility] Co de Phone Number [facility] [address] [place] [address] from Last 3 Months
--- OUTSIDE RECORDS SUMMARY | 2024-06-28 15:25 | XMS_ITS | Patient Health Summary ---
Author Organization [facility] Address [address] [place] [address] Care Team Providers Care Bar Supervisor Name Role Phone Unavailable Primary Care Provider Unavailabl e Note from [facility],non-owned Affiliates and Associated Physician Practices is amultiple site organization consisting of ambulatory clinics and hospital sitesin [place], [place], [place] and [place]. This disclosure is being madepursuant to the Care Everywhere program and may not contain all information available regarding this patient. Last updated 18.[facility] Allergies No known active allergies Medications * Be aware that medications may not be up to date on this document. Alwaysverify current medications with the patient. * HYDROcodone-acetaminophen ([place]) 5-325 MG tablet(Started 05/06/2024) Take 1 (one) [...] Comments Blood Pressure 111/73 05/06/2024 10:22 PM [facility] Pulse 92 05/06/2024 8:01 PM [facility] Temperature 36.8 C (98.2 F) 05/06/2024 8:01 PM [facility] Respiratory Rate 22 05/06/2024 8:01 PM [facility] Oxygen Saturation 97% 05/06/2024 8:01 PM [facility] [employer] Inhaled Oxygen Concentration - - Weight - - Height - - Body Mass Index - - Procedures * CT ABDOMEN PELVIS W CONTRAST(Performed 05/06/2024) Performed for Abdominal pain, right lower quadrant * URINALYSIS REFLEX MICROSCOPIC REFLEX CULTURE(Performed 05/06/2024) * LIPASE BLOOD(Performed 05/06/2024) * COMPREHENSIVE METABOLIC PANEL(Performed 05/06/2024) * CBC W AUTO DIFFERENTIAL(Performed 05/06/2024) Results * CT ABDOMEN PELVIS W CONTRAST (05/06/2024 7:36 PM [facility]) Anatomical Region Laterality Modality Abdomen, Pelvis Computed Tomogra phy 05/06/2024 7:43 PM [facility] Impressions 05/06/2024 7:50 PM [facility] IMPRESSION: 1. Right obstructive uropathy due to a 5 mm calculus in the distal ampullary portion of the ureter. 2. Multiple additional nonobstructing right intrarenal stones > Interpreting Provider: Robert Gandhi MD on 05/06/2024 7:50 PM Narrative 05/06/2024 7:50 PM [facility] PROCEDURE: CT ABDOMEN PELVIS W CONTRAST DATE/TIME [...] REFLEX MICROSCOPIC REFLEX CULTURE (05/06/2024 6:31 PM [facility]) Color UA Yellow Yellow, Straw 05/06/2024 6:42 PM [facility] Clarity UA Clear Clear 05/06/2024 6:42 PM [facility] Glucose UA Normal Normal 05/06/2024 6:42 PM [facility] Bilirubin UA Negative Negative 05/06/2024 6:42 PM [facility] Ketone UA Trace(A) Negative 05/06/2024 6:42 PM [facility] Specific [place] UA 1.028 1.005 - 1.030 05/06/2024 6:42 PM [facility] Blood UA Negative Negative 05/06/2024 6:42 PM [facility] pH UA 5.0 5.0 - 9.0 pH 05/06/2024 6:42 PM [facility] Protein UA Trace(A) Negative 05/06/2024 6:42 PM [facility] Urobilinogen UA Normal Normal mg/dL 025 6:42 PM [facility] Nitrite UA Negative Negative 05/06/2024 6:42 PM [facility] Leukocyte UA Negative Negative 05/06/2024 6:42 PM [facility] Urine URINE SPECIMEN OBTAINED BY CLEAN CATCH PROCEDURE / Unknown Collection / Unknown 05/06/2024 6:31 PM [facility] 05/06/2024 6:36 PM [facility] Narrative [facility] - 05/06/2024 6:42 PM [facility] - URINALYSIS ORD ERABLES [facility] [address] [place] [address] * (ABNORMAL) CBC W AUTO DIFFERENTIAL (05/06/2024 6:31 PM [facility] WBC 13.2(H) 4.0 - 10.7 x10E9/L 05/06/2024 6:41 PM [facility] RBC Count 4.64 4.30 - 5.80 x10E12/L 05/06/2024 6:41 PM [facility] Hemoglobin 14.5 13.3 - 17.5 g/dL 05/06/2024 6:41 PM [facility] Hematocrit 42.6 38.7 - 51.1 % 05/06/2024 6:41 PM [facility] MCV 91.8 80.0 - 98.0 fL 05/06/2024 6:41 PM [facility] MCH 31.3 26.7 - 33.6 pg 05/06/2024 6:41 PM [facility] MCHC 34.0 31.7 - 36.3 g/dL 05/06/2024 6:41 PM [facility] RDW-CV 11.9 11.3 - 14.8 % 05/06/2024 6:41 PM [facility] Platelet Count 263 150 - 420 x10E9/L 05/06/2024 6:41 PM [facility] MPV 9.0 7.8 - 11.4 fL 05/06/2024 6:41 PM [facility] Neutrophil % 75.0(H) 41.0 - 74.0 % 05/06/2024 6:41 PM [facility] Lymphocyte % 17.5 17.0 - 47.0 % 05/06/2024 6:41 PM [facility] Monocyte % 4.9 3.0 - 11.0 % 05/06/2024 6:41 PM [facility] Eosinophil % 1.5 0.0 - 7.0 % 05/06/2024 6:41 PM [facility] Basophil % 0.6 0.0 - 1.6 % 05/06/2024 6:41 PM [facility] Immature Granulocytes % 0.5 0.0 - 1.0 % 05/06/2024 6:41 PM [facility] Neutrophil Absolute 9.89(H) 1.60 - 7.50 x10E9/L 05/06/2024 6:41 PM [facility] Lymphocyte Absolute 2.30 1.00 - 4.40 x10E9/L 05/06/2024 6:41 PM [facility] Monocyte Absolute 0.65 0.15 - 1.00 x10E9/L 05/06/2024 6:41 PM [facility] Eosinophil Absolute 0.20 0.00 - 0.60 x10E9/L 05/06/2024 6:41 PM [facility] Basophil Absolute 0.08 0.00 - 0.13 x10E9/L 05/06/2024 6:41 PM [facility] Blood BLOOD SPECIMEN / Unknown Venipuncture / Unknown 05/06/2024 6:31 PM [facility] 05/06/2024 6:36 PM [facility] - HEMATOLOGY ORD ERABLES Performing Organization Address City/State/[facility] Co de Phone Number [facility] [address] [place] [address] * (ABNORMAL) COMPREHENSIVE METABOLIC PANEL (05/06/2024 6:31 PM [facility]) Glucose 113(H) 70 - 99 mg/dL 05/06/2024 6:52 PM [facility] Sodium 137 136 - 145 mmol/L 05/06/2024 6:52 PM [facility] Potassium 3.7 3.5 - 5.1 mmol/L 05/06/2024 6:52 PM [facility] Chloride 103 98 - 107 mmol/L 05/06/2024 6:52 PM [facility] CO2 26 22 - 29 mmol/L 05/06/2024 6:52 PM [facility] Calcium 9.0 8.4 - 10.4 mg/dL 05/06/2024 6:52 PM [facility] Anion Gap 8 6 - 16 mmol/L 05/06/2024 6:52 PM [facility] BUN 15 5.3 - 18.7 mg/dL 05/06/2024 6:52 PM [facility] Creatinine 1.01 0.72 - 1.25 mg/dL 05/06/2024 6:52 PM [facility] Alkaline Phosphatase 75 40 - 150 U/L 05/06/2024 6:52 PM [facility] ALT 31 0 - 55 U/L 05/06/2024 6:52 PM [facility] AST 23 5 - 34 U/L 05/06/2024 6:52 PM [facility] Protein Total 7.9 6.4 - 8.3 gm/dL 05/06/2024 6:52 PM [facility] Albumin 4.6 3.4 - 5.0 gm/dL 05/06/2024 6:52 PM [facility] Bilirubin Total 1.1 0.2 - 1.2 mg/dL 05/06/2024 6:52 PM [facility] eGFR by CKD-EPI >90 >=90 mL/min/1.7 3 m2 05/06/2024 6:52 PM [facility] Blood BLOOD SPECIMEN / Unknown Venipuncture / Unknown 05/06/2024 6:31 PM [facility] 05/06/2024 6:36 PM [facility] - CHEMISTRY VALERIE SANCHEZ [facility] [address] [place] [address] * LIPASE BLOOD (05/06/2024 6:31 PM [facility]) Lipase 18 <60 U/L 05/06/2024 6:52 PM [facility] Blood BLOOD SPECIMEN / Unknown Venipuncture / Unknown 05/06/2024 6:31 PM [facility] 05/06/2024 6:36 PM [facility] - CHEMISTRY VALERIE SANCHEZ [facility] [address] [place] [address]
--- NOTE | 2024-06-28 15:31 | ED_ITS ---
HPI - General Adult General Chief complaint: Unspecified Stated complaint: upper abdominal pain Time Seen by Provider: 06/28/24 15:25 Source: patient Mode of arrival: ambulatory Limitations: no limitations History of Present Illness HPI narrative: This is a 39-year-old male with history of reflux disease and heartburn presents with heartburn with reflux has tried [id number] preparations with minimal relief. Was seen this previous and was given GI cocktail and sent home with Pepcid with some moderate relief has not had a chance to follow up with his primary care physician yet. There is no fever chills no nausea vomiting no chest pain or shortness of breath there is epigastric discomfort but no belly pain no flank pain no dysuria. Onset (ago): week(s) Location: abdomen Severity: moderate Related Data Allergies Allergy/AdvReac Type Severity Reaction Status Date / Time No Known Allergies Allergy Verified 06/26/24 21:26 Review of Systems Review of Systems: All systems reviewed & are unremarkable except as noted in HPI and below PMFSH Past Medical History Medical History Joint pain Psoriasis Chronic fatigue DESIREE (obstructive sleep apnea) Daytime somnolence Environmental allergies Depression with anxiety Surgical History Surgical History No pertinent past surgical history Family History Family History Father Hypertension Grandparent Family history of lung cancer Social History Social History Smoking packs per day: 0.5 Smoking cigarettes per day: 10.0 Years smoked: 15 Smoking pack-years: 7.50 Smoking status: Current some day smoker Tobacco type: cigarettes Second hand tobacco smoke exposure: No Smoking end date: 03/23/21 Alcohol intake: never Substance use: never Substance use type: does not use Lack of Transportation: No Lack of Food: Never True Current Housing: I Have Housing Concerned About Future Housing: No Difficulty Paying Gas/Electric Bills: No Difficulty Paying for Meds: No Currently Unemployed: No Education: High School Diploma/GED Difficulty w/ Childcare or Family Care: No Gender identity (if verbalized by the patient): Male Exam Const: General: cooperative, healthy appearing, comfortable, no acute distress, well developed, alert and awake Neck: Neck: normal visual inspection, full ROM, no lymphadenopathy and no meningeal signs Chest: Chest palpation & inspection: normal inspection of the chest and normal palpation of entire chest wall Resp: Effort & Inspection: normal respiratory effort and able to speak in complete sentences Auscultation: clear to auscultation bilaterally Cardio: Jugular venous distension: no JVD Palpation: normal PMI Rate: regular rate Rhythm: regular rhythm Heart sounds: S1 normal heart sound present and S2 normal heart sound present GI: Inspection: normal to inspection Auscultation: normal bowel sounds Other: Epigastric tenderness with palpation with positive bowel sounds Skin: General skin exam: normal color and no rashes or lesions noted Course Course Emergency Course: patient received GI cocktail and a dose of p.o. Protonix. Vital Signs Vital signs: Vital Signs Temperature 37.1 C 06/28/24 15:22 Pulse Rate 88 06/28/24 15:22 Respiratory Rate 16 06/28/24 15:22 Blood Pressure 129/88 06/28/24 15:22 Pulse Oximetry 98 06/28/24 15:22 Oxygen Delivery Room Air 06/28/24 15:22 Temperature 37.1 C 06/28/24 15:22 Pulse Rate 88 06/28/24 15:22 Respiratory Rate 16 06/28/24 15:22 Blood Pressure 129/88 06/28/24 15:22 Pulse Oximetry 98 06/28/24 15:22 Oxygen Delivery Room Air 06/28/24 15:22 Medical Decision Making Vital Signs Vital Signs: Vital Signs Temperature 37.1 C 06/28/24 15:22 Pulse Rate 88 06/28/24 15:22 Respiratory Rate 16 06/28/24 15:22 Blood Pressure 129/88 06/28/24 15:22 Pulse Oximetry 98 06/28/24 15:22 Oxygen Delivery Room Air 06/28/24 15:22 Temperature 37.1 C 06/28/24 15:22 Pulse Rate 88 06/28/24 15:22 Respiratory Rate 16 06/28/24 15:22 Blood Pressure 129/88 06/28/24 15:22 Pulse Oximetry 98 06/28/24 15:22 Oxygen Delivery Room Air 06/28/24 15:22 Critical Care Time Critical Care Time Critical Care Time: No Discharge Plan Discharge Clinical Impression: GERD (gastroesophageal reflux disease) Qualifiers: Esophagitis presence: esophagitis presence not specified Qualified Code(s): K21.9 - Gastro-esophageal reflux disease without esophagitis Patient Disposition: Home, Self-Care Condition: Stable Instructions: Antibiotic Form, GERD (Gastroesophageal Reflux Disease) (ED) Additional Instructions: advised to take medication as prescribed and follow with primary care physician within the next 3 to 4 days for further evaluation and treatment. Patient Language: Bangladeshi Prescriptions: New pantoprazole [Protonix] 40 mg tablet,delayed release (DR/EC) 40 mg PO QAM 42 Days Qty: 42 0RF No Action famotidine [Pepcid] 40 mg tablet 40 mg PO DAILY Qty: 30 0RF triamcinolone acetonide 0.1 % cream 1 applic topical BID PRN (Reason: psoriasis) Qty: 454 0RF fluoxetine 40 mg capsule 40 mg PO DAILY Qty: 90 3RF Follow-up/Referrals: Jordyn Laguna MD [Primary Care Provider] - Time of Disposition: 15:37
[2024-06-28] MEDS: PANTOPRAZOLE 40 MG TABLET PO (15:38)
[2024-06-28] MEDS: MAG HYDROX/ALUMINUM HYD/SIMETH 30 ML, PHENobarb/HYOSCY/ATROPINE/SCOP 32.4 MG, LIDOCAINE... PO (15:38)
== END 2024-06-28 16:01 | disposition home or self-care (01) ==
LOC: CHSED 15:41
PROVIDERS: Emergency Provider Emergency Medicine; PCP Family Medicine
DX: K21.9 Gastro-esophageal reflux disease without esophagitis (principal); F17.210 Nicotine dependence, cigarettes, uncomplicated
CPT/HCPCS: 99283; A9270

== ENCOUNTER 2024-09-19 05:12 | Emergency (ER) | payer OTHER, SELFPAY ==
--- NOTE | ~2024-09-19 | CT_ITS ---
Non-contrast CT scan of the Abdomen and Pelvis Clinical indication: Flank pain Technique: 2.5 mm axial scans were obtained through the abdomen and pelvis without intravenous or or al contrast. Dose reduction technique was used on this scan by utilizing automated exposure control a nd iterative reconstruction technique. The dose-length product (DLP) was 196.49 mGy-cm. Findings: Images through the lung bases reveal no abnormalities. There is a 5 mm distal right ureteral stone (axial image 164), with mild right hydroureteronephrosis. There is an additional 10 x 8 mm ovoid stone at the right renal pelvis (axial image 79). Additional smaller bilateral nonobstructing renal stones are present, largest measuring 6 mm in the right kidney . No left ureteral stone or left hydronephrosis. The liver, spleen, pancreas, gallbladder, and adrenals appear normal. There is no aortic aneurysm. There is no evidence of bowel obstruction. Images through the pelvis were performed. There is no evidence of ascites or lymphadenopathy. Urinary bladder unremarkable. No pelvic mass seen. Impression: 5 mm distal right ureteral stone with mild right hydroureteronephrosis. Additional 10 x 8 mm ovoid stone at the right renal pelvis. Additional bilateral nonobstructing renal stones. Reviewed, dictated and finalized at [facility]. Impression: 5 mm distal right ureteral stone with mild right hydroureteronephrosis. Additional 10 x 8 mm ovoid stone at the right renal pelvis. Additional bilateral nonobstructing renal stones.
--- OUTSIDE RECORDS SUMMARY | 2024-09-19 05:15 | XMS_ITS | Clinical Summary ---
Author Organization [facility] Address [address] [address] Care Team Providers Care Course Instructor Name Role Phone Unavailable Primary Care Provider Unavailabl e Source Comments [facility],non-owned Affiliates and Associated Physician Practices is amultiple site organization consisting of ambulatory clinics and hospital sitesin [place], [place], [place] and [place]. This disclosure is being madepursuant to the Care Everywhere program and may not contain all information available regarding this patient. Last updated 18.[facility] Allergies No known active allergies Medications * Be aware that medications may not be up to date on this document. Alwaysverify current medications with the patient. HYDROcodone-michelle taminophen ([place]) 5-325 MG tabletIndicatio ns:Kidney stone Take 1 (one) tablet by mouth every 6 hours as needed for Pain 12 tablet 05/06/2024 Active ondansetron, disintegrating, (Zofran ODT) 4 MG tablet Take 1 (one) tablet by mouth every 6 hours as needed for Nausea/Vomiti ng Allow tablet to dissolve on the tongue 20 tablet 05/06/2024 Active Social History Tobacco Use Types Packs/Day Years Used Date Smoking Tobacco: Never Assessed Sex and Gender Information Value Date Recorded Sex Assigned at Not on file Legal Sex Male 6:09 PM ACCOUNTS ADJUSTABLE CLERK Gender Identity Not on file Sexual Orientation Not on file Last Filed Vital Signs Vital Sign Reading Time Taken Comments Blood Pressure 111/73 05/06/2024 10:22 PM ACCOUNTS ADJUSTABLE CLERK Pulse 92 05/06/2024 8:01 PM ACCOUNTS ADJUSTABLE CLERK Temperature 36.8 C (98.2 F) 05/06/2024 8:01 PM ACCOUNTS ADJUSTABLE CLERK Respiratory Rate 22 05/06/2024 8:01 PM ACCOUNTS ADJUSTABLE CLERK Oxygen Saturation 97% 05/06/2024 8:01 PM ACCOUNTS ADJUSTABLE CLERK Inhaled Oxygen Concentration - - Weight - - Height - - Body Mass Index - - Plan of Treatment Health Maintenance Due Date Last Done Comments HIV SCREENING 2002 HEPATITIS C SCREENING 03/31/2005 DTAP/TDAP/TD VACCINES (1 - Tdap) 2006 HEPATITIS B VACCINE (1 of 3 - 19+ 3-dose series) 2006 COVID-19 VACCINE (1 - 2023-2 5 season) 2023 DEPRESSION SCREENING 04/23/2024 INFLUENZA VACCINE (Season Ended) 2024 ZOSTER VACCINE (1 of 2) 2037 HIB VACCINE Aged Out No longer eligi ble based on patient's age to complete this topic HPV VACCINE Aged Out No longer eligi ble based on patient's age to complete this topic MENINGOCOCCAL (Group B) VACC INE SHARED DECISION-MAKING Aged Out No longer eligibl e based on patient's age to complete this topic MENINGOCOCCAL GROUPS A/C/Y/W VACCINE Aged Out No longer eligible b ased on patient's age to complete this topic PNEUMOCOCCAL VACCINE Aged Out No long er eligible based on patient's age to complete this topic Insurance
--- OUTSIDE RECORDS SUMMARY | 2024-09-19 05:15 | XMS_ITS | Referral Summary ---
Author Organization [facility] Address [address] [place] [id number] Care Team Providers Care Anaesthesiologist Name Role Phone Kavon Laguna MD Primary Care Provider Encounters Date Type Department Care Team Description 08/28/2024 Telephone [facility] Physicians [address] [place] [address] Elizabeth Donohue PA 08/26/2024 1:45 PM CDT Telemedicine [facility] Neurosurgery [facility] Floor 1, [address] [place] [phone] Elizabeth Donohue PA Pineal gland cyst (Primary Dx) 08/26/2024 9:37 AM CDT - 08/26/2024 11:59 PM CDT Hospital Encounter [facility] - MRI [address] [facility] Floor [address] [place] [address] Pineal gland cyst Discharge Disposition: Discharge to home or self care 08/12/2024 Orders Only [facility] Neurosurgery [facility] Floor 1, [address] [place] [phone] Elizabeth Donohue PA Chronic fatigue (Primary Dx); Depression, unspecified depression type 08/05/2024 10:45 AM CDT Office Visit [facility] Neurosurgery [address] [place] [address] Floor 1, [address] [place] [phone] Elizabeth Donohue PA Chronic intractable headache, unspecified headache type (Primary Dx); Pineal gland cyst; Chronic fatigue; Depression, unspecified depression type 07/14/2024 Telephone [facility] [address] [place] [address] Elizabeth Donohue PA 07/10/2024 5:46 PM CDT - 07/10/2024 11:59 PM CDT Hospital Encounter [facility] [address] [place] [address] Discharge Disposition: Discharge to home or self care 07/04/2024 Telephone [facility] Scheduling [address] [place] [address] Maru Gordon from Last 3 Months Allergies No known active allergies Medications FLUoxetine (PROzac) 40 mg capsule Take 1 capsule (40 mg total) by mouth daily 07/16/2024 Active famotidine (PEPCID) 40 mg tablet Take 1 tablet (40 mg total) by mouth daily 06/27/2024 Active Active Problems No known active problems Social History Tobacco Use Types Packs/Day Years Used Date Smoking Tobacco: Every Day Cigarettes Smokeless Tobacco: Never Tobacco Cessation:Ready to Q uit: Not Asked; Counseling Given: Not Answered Sex and Gender Information Value Date Recorded Sex Assigned at Not on file 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 Gender Identity Not on file Sexual Orientation Not on file Last Filed Vital Signs Vital Sign Reading Time Taken Comments Blood Pressure 127/89 08/05/2024 10:35 AM CDT Pulse 79 08/05/2024 10:35 AM CDT Temperature 36.6 C (97.8 F) 08/05/2024 10:35 AM CDT Respiratory Rate 17 08/05/2024 10:3 5 AM CDT Oxygen Saturation 98% 08/05/2024 10: 35 AM CDT Inhaled Oxygen Concentration - - Weight 78.8 kg (173 lb 12.8 oz) 025 10:35 AM CDT Height 177.8 cm (5' 10) 08/05/2024 10: 35 AM CDT Body Mass Index 24.94 08/05/2024 10:35 AM CDT Plan of Treatment Not on file Procedures Procedure Name Priority Date/Time Associated Diagnosis Comments MRI CINE FLOW STUDY - BRAIN WO CONTRAST Schedule Routine, Read Routine (OP Routine) 08/26/2024 11:07 AM CDT Pineal gland cyst NEURO MR OUTSIDE REFERENCE Routine 07/10/2024 5:46 PM CDT from Last 3 Months Results * MRI Cine Flow Study - Brain WO Contrast (08/26/2024 11:07 AM CDT) Anatomical Region Laterality Modality Head and Neck N/A Magnetic Resonan ce 08/26/2024 3:01 PM CDT Impressions 08/26/2024 9:47 PM CDT Unchanged size of the pineal gland lesion with mild mass effect upon the tectum. The cerebral aqueduct is patent with intact pulsatile CSF flow. No upstream ventriculomegaly. If not already performed, a postcontrast MRI is recommended to further characterize the pineal gland lesion. Dictated by: Melinda Stoner M.D. The radiology attending physician has personally reviewed this study, and had reviewed and/or edited this written report and agrees with it. Electronically signed by: Parviz Aguilar M.D. Narrative 08/26/2024 9:47 PM CDT EXAMINATION: Magnetic resonance imaging (MRI) of the brain and brainstem without contrast HISTORY: 39 year-old with pineal gland cyst, assess for obstruction of CSF flow. TECHNIQUE: Multiplanar multi-weighted MRI of the brain and brainstem was performed without intravenous contrast using the CSF cine flow protocol. COMPARISON: MRI brain 05/29/2024 FINDINGS: Redemonstration of a 1.5 x 0.8 cm T2 hyperintense pineal gland lesion, not significantly changed compared to prior exam. There are foci of susceptibility surrounding the pineal gland lesion. Sagittal CISS sequences demonstrate patency of the cerebral aqueduct without upstream hydrocephalus. No significant enlargement of the anterior 3rd ventricle; the floor of the third ventricle is flat and the suprachiasmatic and infundibular recesses are not bulbous. The scalp and calvarium are normal. The superior sagittal sinus demonstrates normal venous flow. The corpus callosum is normal in shape and signal intensity. The posterior fossa is unremarkable. Partially empty sella. The brainstem and craniocervical junction are unremarkable. Diffusion weighted images reveal no hyperintensities to suggest acute cerebral infarction. The susceptibility weighted sequences reveal no evidence of acute or chronic hemorrhage. The ventricles are normal in size and position without evidence of hydrocephalus. Mild paranasal sinus mucosal thickening. Trace left mastoid effusion. The orbits appear normal. Normal flow voids are demonstrated in the carotid arteries and basilar artery. Procedure Note Parviz Aguilar MD - 08/26/2024 EXAMINATION: Magnetic resonance imaging (MRI) of the brain and brainstem without contrast HISTORY: 39 year-old with pineal gland cyst, assess for obstruction of CSF flow. TECHNIQUE: Multiplanar multi-weighted MRI of the brain and brainstem was performed without intravenous contrast using the CSF cine flow protocol. COMPARISON: MRI brain 05/29/2024 FINDINGS: Redemonstration of a 1.5 x 0.8 cm T2 hyperintense pineal gland lesion, not significantly changed compared to prior exam. There are foci of susceptibility surrounding the pineal gland lesion. Sagittal CISS sequences demonstrate patency of the cerebral aqueduct without upstream hydrocephalus. No significant enlargement of the anterior 3rd ventricle; the floor of the third ventricle is flat and the suprachiasmatic and infundibular recesses are not bulbous. The scalp and calvarium are normal. The superior sagittal sinus demonstrates normal venous flow. The corpus callosum is normal in shape and signal intensity. The posterior fossa is unremarkable. Partially empty sella. The brainstem and craniocervical junction are unremarkable. Diffusion weighted images reveal no hyperintensities to suggest acute cerebral infarction. The susceptibility weighted sequences reveal no evidence of acute or chronic hemorrhage. The ventricles are normal in size and position without evidence of hydrocephalus. Mild paranasal sinus mucosal thickening. Trace left mastoid effusion. The orbits appear normal. Normal flow voids are demonstrated in the carotid arteries and basilar artery. IMPRESSION: Unchanged size of the pineal gland lesion with mild mass effect upon the tectum. The cerebral aqueduct is patent with intact pulsatile CSF flow. No upstream ventriculomegaly. If not already performed, a postcontrast MRI is recommended to further characterize the pineal gland lesion. Dictated by: Melinda Stoner M.D. The radiology attending physician has personally reviewed this study, and had reviewed and/or edited this written report and agrees with it. Electronically signed by: Parviz Aguilar M.D. Elizabeth Donohue PA IMG MRI PROCEDURES Kami l Result * Neuro MR Outside Reference (07/10/2024 5:46 PM CDT) Impressions [facility] - 07/10/2024 5:46 PM CDT These images are for Reference purposes only and have not been reviewed by [facility] Radiology. There will be no report generated by a [facility] Radiologist. Narrative RAD_RADHAS[facility] - 07/10/2024 5:46 PM CDT EXAMINATION: Images For Reference Purposes Only us Elizabeth Coreen SMITH IMG MRI PROCEDURES Kami l Result RAD_PACS[facility] from Last 3 Months Insurance [employer] Care Teams Anaesthesiologist Relationship Specialty Start Date End Date Kavon Laguna MD [address] [facility] [place] [address] [place] [address] PCP - General Family Practice 07/04/24
--- OUTSIDE RECORDS SUMMARY | 2024-09-19 05:15 | XMS_ITS | Clinical Summary ---
Author Organization [facility] Address [address] [place] [phone] Care Team Providers Care Weaver Hand Loom Name Role Phone Kavon Laguna MD Primary Care Provider Allergies No known active allergies Medications FLUoxetine (PROzac) 40 mg capsule Take 1 capsule (40 mg total) by mouth daily 07/16/2024 Active famotidine (PEPCID) 40 mg tablet Take 1 tablet (40 mg total) by mouth daily 06/27/2024 Active Active Problems No known active problems Encounters Date Type Department Care Team Description 08/28/2024 Telephone [facility] with [facility] Physicians [address] [place] [address] Elizabeth Donohue PA 08/26/2024 1:45 PM CDT Telemedicine [facility] Neurosurgery [facility] Floor 1, [address] [place] [address] Elizabeth Donohue PA Pineal gland cyst (Primary Dx) 08/26/2024 9:37 AM CDT - 08/26/2024 11:59 PM CDT Hospital Encounter [facility] [place] - MRI [address] [facility] Floor [address] [place] [address] Pineal gland cyst Discharge Disposition: Discharge to home or self care 08/12/2024 Orders Only [facility] Neurosurgery [address] [facility] Floor 1, [address] [place] [phone] Elizabeth Donohue PA Chronic fatigue (Primary Dx); Depression, unspecified depression type 08/05/2024 10:45 AM CDT Office Visit [facility] Neurosurgery [address] [facility] Floor 1, [address] [place] [address] Elizabeth Donohue PA Chronic intractable headache, unspecified headache type (Primary Dx); Pineal gland cyst; Chronic fatigue; Depression, unspecified depression type 07/14/2024 Telephone [facility] with [facility] Physicians [address] [place] [address] Elizabeth Donohue PA 07/10/2024 5:46 PM CDT - 07/10/2024 11:59 PM CDT Hospital Encounter [facility] [address] [place] [address] Discharge Disposition: Discharge to home or self care 07/04/2024 Telephone [facility] Scheduling [address] [place] [address] Maru Gordon from Last 3 Months Social History Tobacco Use Types Packs/Day Years Used Date Smoking Tobacco: Every Day Cigarettes Smokeless Tobacco: Never Tobacco Cessation:Ready to Q uit: Not Asked; Counseling Given: Not Answered Sex and Gender Information Value Date Recorded Sex Assigned at Not on file 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 Gender Identity Not on file Sexual Orientation Not on file Obstetrics History Last Filed Vital Signs Vital Sign Reading [...] 08/05/2024 10:35 AM CDT Plan of Treatment Health Maintenance Due Date Last Done Comments Depression Screening 1987 Hepatitis C Screening 1987 Varicella Vaccines (1 of 2 - 13+ 2-dose series) 2000 Hepatitis B Screening 2005 Regular Well Visit/Exam 18-64 2005 Pneumococcal vaccine <65 (1 of 2 - PCV) 2006 DTaP/Tdap/Td Vaccine (2 - Td or Tdap) 02/03/2023 02/03/2013 Covid-19 Vaccine (4 - 2023-2 5 season) 2023 04/12/2021, 07/15/2020, 06/17/2020 Influenza Vaccine (Season Ended) 2024 03/06/2022 HPV Vaccines Aged Out No longer eligi ble based [...] Electronically signed by: Parviz Aguilar M.D. Elizabeth SMITH IMG MRI PROCEDURES Kami l Result * Neuro MR Outside Reference (07/10/2024 5:46 PM CDT) Impressions [facility] - 07/10/2024 5:46 PM CDT These images are for Reference purposes only and have not been reviewed by [facility] Radiology. There will be no report generated by a [facility] Radiologist. Narrative [facility] - 07/10/2024 5:46 PM CDT EXAMINATION: Images For Reference Purposes Only Elizabeth SMITH IMG MRI PROCEDURES Kami l Result [facility]_P[facility] from Last [address] [facility] [employer] Care Teams Weaver Hand Loom Relationship Specialty Start Date End Date Kavon Laguna MD [facility] [address] [place] [address] PCP - General Family Practice 07/04/24
[2024-09-19 05:20] VITALS: BP 151/106; PULSE 75; RESP 20; TEMP 35.9; O2SAT 100
--- NOTE | 2024-09-19 05:31 | ED_ITS ---
HPI - Abdominal Pain General Chief Complaint: Urogenital-Male Stated Complaint: kidney stone Time Seen by Provider: 09/19/24 05:23 Source: patient Mode of arrival: ambulatory Limitations: no limitations History of Present Illness HPI narrative: This is a 39-year-old male with a history of kidney stones presents with right flank and right groin discomfort that started [id number] ago. Patient states his pain is rated at a 10/10 does have some chills with no fevers no hematuria or dysuria, with some nausea with no current vomiting. MD elicited complaint: flank pain Pertinent past history: kidney stones Onset (ago): hour(s) Pain Consistency: constant Severity: severe Pain scale (0-10): 10 Quality: dull Radiation: R flank Related Data Allergies Allergy/AdvReac Type Severity Reaction Status Date / Time No Known Allergies Allergy Verified 09/19/24 05:26 Review of Systems Review of Systems: All systems reviewed & are unremarkable except as noted in HPI and below PMFSH Past Medical History Medical History Joint pain Psoriasis Chronic fatigue DESIREE (obstructive sleep apnea) Daytime somnolence Environmental allergies Depression with anxiety Surgical History Surgical History No pertinent past surgical history Family History Family History Father Hypertension Grandparent Family history of lung cancer Social History Social History Smoking packs per day: 0.5 Smoking cigarettes per day: 10.0 Years smoked: 15 Smoking pack-years: 7.50 Smoking status: Current some day smoker Tobacco type: cigarettes Second hand tobacco smoke exposure: No Smoking end date: 03/23/21 Alcohol intake: never Substance use: never Substance use type: does not use Lack of Transportation: No Lack of Food: Never True Current Housing: I Have Housing Concerned About Future Housing: No Difficulty Paying Gas/Electric Bills: No Difficulty Paying for Meds: No Currently Unemployed: No Education: High School Diploma/GED Difficulty w/ Childcare or Family Care: No Gender identity (if verbalized by the patient): Male Exam Const: General: healthy appearing and no acute distress Nutritional Appearance: well nourished Orientation/consciousness: patient oriented x3 Limitations: no limitations Neck: Neck: normal visual inspection, no lymphadenopathy and no meningeal signs Resp: Effort & Inspection: normal respiratory effort Auscultation: clear to auscultation bilaterally Cardio: Rate: regular rate Rhythm: regular rhythm GI: GI Palp: Yes Soft to palpation and Yes Tenderness to palpation present (GI) Other: Right flank pain radiating to his right groin : General: Yes CVA tenderness Urinary Catheter: Urinary Catheter: patent and draining Back/Spine/Pelvis: Back: CVA tenderness Skin: General skin exam: normal color Rashes: no rashes Neuro: General: patient oriented x3, moves all extremities, no meningeal signs and no focal motor deficits Extrem: General: normal to inspection, no clubbing, cyanosis or edema and no pedal edema Course Course Emergency Course: patient started on IV fluids with normal saline 30mg IV Toradol administered along with 4mg IV Zofran. Labs obtained and reviewed with patient and unremarkable with normal white blood cell count. CT scan abdomen pelvis performed Revealed a 5mm distal ureter stone with mild right hydronephrosis. After reassessment patient's pain level as a reduce down to a 5/10.. Vital Signs Vital signs: Vital Signs Temperature 35.9 C L 09/19/24 05:20 Pulse Rate 75 09/19/24 05:20 Respiratory Rate 20 09/19/24 05:20 Blood Pressure 151/106 H 09/19/24 05:20 Pulse Oximetry 100 09/19/24 05:20 Oxygen Delivery Room Air 09/19/24 05:20 Temperature 35.9 C L 09/19/24 05:20 Pulse Rate 75 09/19/24 05:20 Respiratory Rate 20 09/19/24 05:20 Blood Pressure 151/106 H 09/19/24 05:20 Pulse Oximetry 100 09/19/24 05:20 Oxygen Delivery Room Air 09/19/24 05:20 Critical Care Time Critical Care Time Critical Care Time: No Discharge Plan Discharge Clinical Impression: Urolithiasis Qualifiers: Urinary calculus location: ureter Qualified Code(s): N20.1 - Calculus of ureter Patient Disposition: Home Condition: Stable Instructions: Antibiotic Form, Ureteral Stones (ED) Additional Instructions: advised patient to take medication as prescribed follow with primary care physician within the next 3 to 5 days for further evaluation treatment. Patient Language: Tamazight Prescriptions: New sulfamethoxazole-trimethoprim [Bactrim DS] 800-160 mg tablet 1 tablet PO Q12H Qty: 14 0RF tamsulosin [Flomax] 0.4 mg capsule 0.4 mg PO DAILY Qty: 7 0RF tramadol 50 mg tablet 50 mg PO Q6H PRN (Reason: pain) Qty: 30 0RF ondansetron 4 mg tablet,disintegrating 4 mg PO Q6H PRN (Reason: nausea and vomiting) Qty: 10 0RF No Action famotidine [Pepcid] 40 mg tablet 40 mg PO DAILY Qty: 30 0RF pantoprazole [Protonix] 40 mg tablet,delayed release (DR/EC) 40 mg PO QAM 42 Days Qty: 42 0RF triamcinolone acetonide 0.1 % cream 1 applic topical BID PRN (Reason: psoriasis) Qty: 454 0RF fluoxetine 40 mg capsule 40 mg PO DAILY Qty: 90 3RF Follow-up/Referrals: Jordyn Laguna MD [Primary Care Provider] - Time of Disposition: 06:38
[2024-09-19 05:39] LABS: Basophils Absolute Auto 0.06 K/mm3 (0.00-0.10); Basophils Percent Auto 0.7 % (0.0-1.0); Eosinophils Absolute Auto 0.26 K/mm3 (0.02-0.50); Hemoglobin 15.1 g/dL (14.0-18.0); Immature Granulocyte Absolute 0.04 K/mm3 (0.00-0.00); Immature Granulocyte Percent A 0.5 % (0.0-0.0); Lymphocytes Absolute Auto 2.15 K/mm3 (1.10-4.50); Lymphocytes Percent Auto 24.6 % (18.0-42.0); Mean Corpuscular HGB Conc 32.8 g/dL (32-36); Mean Corpuscular Hemoglobin 30.9 pg (27.0-31.0); Mean Corpuscular Volume 94.1 fL (78.0-102.0); Monocytes Absolute Auto 0.45 K/mm3 (0.10-0.90); Monocytes Percent Auto 5.2 % (2.0-11.0); Neutrophils Absolute Auto 5.77 K/mm3 (1.70-7.20); Platelet Count Result 264 K/mm3 (150-420); Red Blood Count 4.89 M/mm3 (4.70-6.10); Red Cell Distribution Width 11.9 % (11.6-14.4); White Blood Count 8.7 K/mm3 (4.8-10.8)
[2024-09-19] MEDS: KETOROLAC 30 MG/ML VIAL (*BKC) IV PUSH (05:40)
[2024-09-19] MEDS: ONDANSETRON INJ 4 MG/2 ML VIAL IV PUSH (05:40)
[2024-09-19] MEDS: SODIUM CHLORIDE 0.9% IV 1,000 ML 999 ML IV CONT (05:42)
[2024-09-19 05:50] LABS: Alanine Aminotransferase 34 U/L (6-50); Albumin Level 4.5 g/dL (3.5-5.1); Alkaline Phosphatase 65 U/L (38-126); Anion Gap 5 mmol/L (4-12); Aspartate Amino Transferase 31 U/L (17-59); Bilirubin,Total 0.9 mg/dL (0.2-1.3); Blood Urea Nitrogen 18 mg/dL (9-20); Calcium 8.8 mg/dL (8.4-10.2); Carbon Dioxide 29 mmol/L (22-30); Chloride 105 mmol/L (98-107); Estimated CRCL calculation 105 ml/min; Estimated Glomerular Filt Rate > 60; Glucose 104 mg/dL (65-110); Lipase 93 U/L (23-300); Osmolality Calculated 289 mOsm/kg (285-295); Potassium 4.2 mmol/L (3.4-5.0); Sodium 139 mmol/L (137-145); Total Protein 7.8 g/dL (6.3-8.2)
[2024-09-19 05:51] LABS: Lactic Acid Reflex 0.7 mmol/L (0.4-2.0)
[2024-09-19 06:54] VITALS: BP 112/78; PULSE 68; RESP 20; TEMP 36.1; O2SAT 100
[2024-09-19] MEDS: MORPHINE SULFATE (*CRX) 4 MG/ML INJ IV PUSH (07:13)
--- NOTE | 2024-09-19 07:19 | PC.NURSE ---
patient medicated per ERP order, see MAR. 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 awake and alert. report given to SARTHAK Raphael for continuation of care on day shift.
== END 2024-09-19 07:51 | disposition home or self-care (01) ==
PROVIDERS: Emergency Provider Emergency Medicine; PCP Family Medicine
DX: N20.1 Calculus of ureter (principal); F17.210 Nicotine dependence, cigarettes, uncomplicated
CPT/HCPCS: 36415; 74176; 80053; 83605; 83690; 85025; 96361; 96374; 96375; 99284; J1885; J2270; J2405; J7030